=== PATIENT | male | born 1945 | race Caucasian/White ===

== ENCOUNTER 2018-03-30 13:47 | Emergency (ER) | payer MEDICARE, OTHER ==
[~2018-03-30] VITALS: Ht 162.6 cm; Wt 65.8 kg
[2018-03-30] MEDS ORDERED: DULO60 (14:19)
[2018-03-30] MEDS ORDERED: GABA300 PO (14:19)
[2018-03-30] MEDS ORDERED: MORP30 PO (14:20)
[2018-03-30] MEDS ORDERED: CLON1 PO (14:20)
[2018-03-30] MEDS ORDERED: QUET25 PO (14:20)
[2018-03-30] MEDS ORDERED: SIMV40 PO (14:21)
[2018-03-30] MEDS ORDERED: TAMS.4ER PO (14:21)
[2018-03-30] MEDS ORDERED: MIRT15 PO (14:21)
[2018-03-30] MEDS ORDERED: GLIP2.5ER PO (14:22)
[2018-03-30] MEDS ORDERED: LEVSOD50 PO (14:23)
[2018-03-30] MEDS ORDERED: NITR.4SL SL (14:24)
[2018-03-30] MEDS ORDERED: ASPI81CH PO (14:24)
[2018-03-30] MEDS ORDERED: TRAM50 PO (14:25)
[2018-03-30 14:58] LABS: Alanine Aminotransfer (ALT/SGP 14 U/L (12-78); Albumin, Blood 2.6 g/dL (3.4-5.0); Albumin/Globulin Ratio 0.6 (0.8-1.8); Alk Phos 105 U/L (50-136); Anion Gap 6 mmol/L (6-16); Aspartate Aminotrans (AST/SGOT 11 U/L (12-37); Bilirubin, Total 0.4 mg/dL (0.1-1.0); Blood Urea Nitrogen 7 mg/dL (8-24); Bun/Creatinine Ratio 9.7 (12.0-20.0); CO2, Blood 28 mmol/L (21-32); Calcium, Blood 8.4 mg/dL (8.5-10.1); Chloride, Blood 105 mmol/L (98-108); Creatinine, Blood 0.72 mg/dL (0.60-1.20); Globulin, Blood 4.5 g/dL (2.2-4.0); Glomerular Filtration Rate >60 (60-); Glucose, Blood 118 mg/dL (70-99); Potassium, Blood 3.9 mmol/L (3.5-5.5); Sodium, Blood 139 mmol/L (136-145); Total Protein, Blood 7.1 g/dL (6.4-8.2)
[2018-03-30 15:01] LABS: BASOPHILS ABSOLUTE AUTO 0.05 K/mm3 (0.00-0.23); BASOPHILS PERCENT AUTO 1 % (0-2); EOSINOPHILS ABSOLUTE AUTO 0.02 K/mm3 (0.00-0.68); EOSINOPHILS PERCENT AUTO 0 % (0-6); Hemoglobin 16.3 g/dL (13.5-17.5); IMMATURE GRAN ABSOLUTE AUTO 0.04 K/mm3 (0.00-0.10); IMMATURE GRAN PERCENT AUTO 0 % (0-1); LYMPHOCYTES ABSOLUTE AUTO 1.62 K/mm3 (0.84-5.20); LYMPHOCYTES PERCENT AUTO 17 % (21-46); MONOCYTES ABSOLUTE AUTO 0.62 K/mm3 (0.16-1.47); MONOCYTES PERCENT AUTO 7 % (4-13); Mean Corpuscular HGB 30.4 pg (26.0-34.0); Mean Corpuscular HGB Conc 32.6 g/dL (31.5-36.5); Mean Corpuscular Volume 93 fL (80-100); Mean Platelet Volume 9.3 fL (9.1-12.4); NEUTROPHILS ABSOLUTE AUTO 6.98 K/mm3 (1.96-9.15); NEUTROPHILS PERCENT AUTO 75 % (41-73); Platelet Count 305 K/mm3 (150-400); RDW Coefficient Variation 15.7 % (11.7-14.2); RDW Standard Deviation 53.4 fL (35.1-46.3); Red Blood Cell Count 5.36 M/mm3 (4.30-5.90); White Blood Cell Count 9.33 K/mm3 (4.00-11.30)
[2018-03-30 15:06] LABS: Source, Urine Clean Catch
[2018-03-30 15:14] LABS: Appearance, Urine Hazy (Clear); Bilirubin, Urine Neg (Neg); Blood, Urine Neg (Neg); Color, Urine Yellow (P-Yellow); Glucose Qualitative, Urine Neg (Neg); Ketones, Urine Neg (Neg); Leukocyte Esterase, Urine Neg (Neg); Nitrite, Urine Neg (Neg); Protein, Urine Neg (Neg); Urobilinogen, Urine NORM (Normal)
[2018-03-30 15:29] LABS: Amorphous Heavy (0-Heavy); Bacteria Rare /hpf; Red Blood Cells, Urine 0-2 /hpf (0-2); Squamous Epithelial Cells Rare /hpf (Few); White Blood Cells, Urine 0-2 /hpf (0-5)
== END 2018-03-30 17:16 | disposition home or self-care (01) ==
LOC: ER 13:47
PROVIDERS: Physician Assistant
DX: J45.901 Unspecified asthma with (acute) exacerbation (principal); K52.9 Noninfective gastroenteritis and colitis, unspecified; I10 Essential (primary) hypertension; I25.10 Atherosclerotic heart disease of native coronary artery without angina pectoris; E11.9 Type 2 diabetes mellitus without complications; E03.9 Hypothyroidism, unspecified; J44.9 Chronic obstructive pulmonary disease, unspecified; F17.210 Nicotine dependence, cigarettes, uncomplicated; Z88.5 Allergy status to narcotic agent; Z79.899 Other long term (current) drug therapy; Z79.84 Long term (current) use of oral hypoglycemic drugs; Z79.82 Long term (current) use of aspirin
CPT/HCPCS: 36415; 71046; 74176; 80053; 81001; 85025; 93005; 93010; 94644; 96361; 96374; 96375; 99284-25; J2405; J2930; J7030

== ENCOUNTER 2018-09-26 11:39 | Emergency (ER) | payer MEDICARE, OTHER ==
[~2018-09-26] VITALS: Ht 172.7 cm; Wt 86.2 kg
[~2018-09-26 11:39] MED LIST: ASPI81CH PO; CLON1 PO; DULO60; GABA300 PO; GLIP2.5ER PO; LEVSOD50 PO; MIRT15 PO; MORP30 PO; NITR.4SL SL; QUET25 PO; SIMV40 PO; TAMS.4ER PO; TRAM50 PO
[2018-09-26 12:25] LABS: BASOPHILS ABSOLUTE AUTO 0.06 K/mm3 (0.00-0.23); BASOPHILS PERCENT AUTO 1 % (0-2); EOSINOPHILS ABSOLUTE AUTO 0.04 K/mm3 (0.00-0.68); EOSINOPHILS PERCENT AUTO 1 % (0-6); Hemoglobin 18.8 g/dL (13.5-17.5); IMMATURE GRAN ABSOLUTE AUTO 0.03 K/mm3 (0.00-0.10); IMMATURE GRAN PERCENT AUTO 0 % (0-1); LYMPHOCYTES ABSOLUTE AUTO 1.77 K/mm3 (0.84-5.20); LYMPHOCYTES PERCENT AUTO 22 % (21-46); MONOCYTES ABSOLUTE AUTO 0.67 K/mm3 (0.16-1.47); MONOCYTES PERCENT AUTO 8 % (4-13); Mean Corpuscular HGB 30.1 pg (26.0-34.0); Mean Corpuscular HGB Conc 32.4 g/dL (31.5-36.5); Mean Corpuscular Volume 93 fL (80-100); Mean Platelet Volume 9.7 fL (9.1-12.4); NEUTROPHILS ABSOLUTE AUTO 5.65 K/mm3 (1.96-9.15); NEUTROPHILS PERCENT AUTO 69 % (41-73); Platelet Count 195 K/mm3 (150-400); RDW Coefficient Variation 15.1 % (11.7-14.2); RDW Standard Deviation 51.8 fL (35.1-46.3); Red Blood Cell Count 6.24 M/mm3 (4.30-5.90); White Blood Cell Count 8.22 K/mm3 (4.00-11.30)
[2018-09-26 12:26] LABS: Hematocrit 58.1 % (37.0-53.0)
[2018-09-26 12:44] LABS: Alanine Aminotransfer (ALT/SGP 38 U/L (12-78); Albumin, Blood 3.2 g/dL (3.4-5.0); Albumin/Globulin Ratio 0.7 (0.8-1.8); Alk Phos 116 U/L (50-136); Anion Gap 5 mmol/L (6-16); Aspartate Aminotrans (AST/SGOT 77 U/L (12-37); Bilirubin, Total 0.6 mg/dL (0.1-1.0); Blood Urea Nitrogen 14 mg/dL (8-24); Bun/Creatinine Ratio 22.3 (12.0-20.0); CO2, Blood 28 mmol/L (21-32); Calcium, Blood 9.2 mg/dL (8.5-10.1); Chloride, Blood 104 mmol/L (98-108); Creatinine, Blood 0.63 mg/dL (0.60-1.20); Globulin, Blood 4.9 g/dL (2.2-4.0); Glomerular Filtration Rate >60 (60-); Glucose, Blood 117 mg/dL (70-99); Potassium, Blood 5.9 mmol/L (3.5-5.5); Sodium, Blood 137 mmol/L (136-145); Total Protein, Blood 8.1 g/dL (6.4-8.2); Troponin I <0.015 ng/mL (0.000-0.040)
== END 2018-09-26 13:33 | disposition left against medical advice (07) ==
LOC: ER 11:39
PROVIDERS: Internal Medicine
DX: E87.5 Hyperkalemia (principal); I10 Essential (primary) hypertension; F41.9 Anxiety disorder, unspecified; E78.5 Hyperlipidemia, unspecified; E03.9 Hypothyroidism, unspecified; E11.9 Type 2 diabetes mellitus without complications; K21.9 Gastro-esophageal reflux disease without esophagitis; F25.9 Schizoaffective disorder, unspecified; Z88.5 Allergy status to narcotic agent; Z79.899 Other long term (current) drug therapy; Z79.82 Long term (current) use of aspirin; F17.200 Nicotine dependence, unspecified, uncomplicated
CPT/HCPCS: 36415; 71046; 80053; 83880; 84484; 85025; 93005; 93010; 99285-25

== ENCOUNTER 2019-01-14 19:17 | Emergency (ER) | payer MEDICARE, OTHER ==
[~2019-01-14] VITALS: Ht 162.6 cm; Wt 90.7 kg
[~2019-01-14 19:17] MED LIST changes: -ASPI81CH PO; +Aspirin EC81 MG PO; +CLON.5 PO; -CLON1 PO; -DULO60; +DULO60 PO; -GLIP2.5ER PO; +GLIP5ER PO; +LEVSOD25 PO; -LEVSOD50 PO
[2019-01-14 19:46] LABS: BASOPHILS ABSOLUTE AUTO 0.08 K/mm3 (0.00-0.23); BASOPHILS PERCENT AUTO 1 % (0-2); EOSINOPHILS ABSOLUTE AUTO 0.53 K/mm3 (0.00-0.68); EOSINOPHILS PERCENT AUTO 5 % (0-6); Hematocrit 44.7 % (37.0-53.0); IMMATURE GRAN ABSOLUTE AUTO 0.07 K/mm3 (0.00-0.10); IMMATURE GRAN PERCENT AUTO 1 % (0-1); LYMPHOCYTES ABSOLUTE AUTO 2.67 K/mm3 (0.84-5.20); LYMPHOCYTES PERCENT AUTO 26 % (21-46); MONOCYTES ABSOLUTE AUTO 0.97 K/mm3 (0.16-1.47); MONOCYTES PERCENT AUTO 9 % (4-13); Mean Corpuscular HGB 29.7 pg (26.0-34.0); Mean Corpuscular HGB Conc 31.3 g/dL (31.5-36.5); Mean Corpuscular Volume 95 fL (80-100); Mean Platelet Volume 9.9 fL (9.1-12.4); NEUTROPHILS ABSOLUTE AUTO 6.01 K/mm3 (1.96-9.15); NEUTROPHILS PERCENT AUTO 58 % (41-73); Platelet Count 275 K/mm3 (150-400); RDW Coefficient Variation 14.4 % (11.7-14.2); RDW Standard Deviation 49.7 fL (35.1-46.3); Red Blood Cell Count 4.71 M/mm3 (4.30-5.90); White Blood Cell Count 10.33 K/mm3 (4.00-11.30)
[2019-01-14 19:57] LABS: Alanine Aminotransfer (ALT/SGP 22 U/L (12-78); Albumin, Blood 2.9 g/dL (3.4-5.0); Albumin/Globulin Ratio 0.7 (0.8-1.8); Alk Phos 79 U/L (50-136); Anion Gap 4 mmol/L (6-16); Aspartate Aminotrans (AST/SGOT 19 U/L (12-37); Bilirubin, Total 0.4 mg/dL (0.1-1.0); Blood Urea Nitrogen 17 mg/dL (8-24); Bun/Creatinine Ratio 21.5 (12.0-20.0); CO2, Blood 31 mmol/L (21-32); Calcium, Blood 9.1 mg/dL (8.5-10.1); Chloride, Blood 102 mmol/L (98-108); Creatinine, Blood 0.79 mg/dL (0.60-1.20); Globulin, Blood 4.2 g/dL (2.2-4.0); Glomerular Filtration Rate >60 (60-); Glucose, Blood 193 mg/dL (70-99); Potassium, Blood 4.2 mmol/L (3.5-5.5); Sodium, Blood 137 mmol/L (136-145); Total Protein, Blood 7.1 g/dL (6.4-8.2)
[2019-01-14] MEDS ORDERED: HYDPAM25 PO (20:08)
[2019-01-14] MEDS ORDERED: LEVO750 PO (20:09)
[2019-01-14 20:10] LABS: International Normalized Ratio 1.03; Prothrombin Time Results 10.9 Sec (9.7-11.5)
[2019-01-14] MEDS ORDERED: Celexa10 MG PO (20:10)
[2019-01-14] MEDS ORDERED: ALBU90OI INH ×2 (20:12→21:18)
[2019-01-14 20:26] LABS: PCO2 Arterial 55 mmHg (35-45); pH Blood Arterial 7.37 (7.35-7.45)
[2019-01-14 20:27] LABS: PO2 Arterial 62.5 mmHg (80-100)
[2019-01-14] MEDS ORDERED: NICO2 (20:51)
[2019-01-14] MEDS ORDERED: Prednisone20 MG PO (21:18)
== END 2019-01-14 21:43 | disposition home or self-care (01) ==
LOC: ER 19:17
PROVIDERS: Emergency Medicine
DX: J96.21 Acute and chronic respiratory failure with hypoxia (principal); Z86.73 Personal history of transient ischemic attack (TIA), and cerebral infarction without residual deficits; J44.1 Chronic obstructive pulmonary disease with (acute) exacerbation; Z88.5 Allergy status to narcotic agent; Z88.8 Allergy status to other drugs, medicaments and biological substances; Z79.899 Other long term (current) drug therapy; Z79.82 Long term (current) use of aspirin; I10 Essential (primary) hypertension; F41.9 Anxiety disorder, unspecified; E78.5 Hyperlipidemia, unspecified; E03.9 Hypothyroidism, unspecified; E11.9 Type 2 diabetes mellitus without complications; K21.9 Gastro-esophageal reflux disease without esophagitis; F17.210 Nicotine dependence, cigarettes, uncomplicated
CPT/HCPCS: 36600; 70450; 71045; 80053; 82803; 85025; 85610; 85730; 93005; 93010; 94640; 96374; 99285-25; J2930

== ENCOUNTER 2019-07-05 10:11 | Emergency (ER) | payer MEDICARE, OTHER ==
[~2019-07-05] VITALS: Ht 162.6 cm; Wt 81.7 kg
[~2019-07-05 10:11] MED LIST changes: +ALBU90OI INH; +Celexa10 MG PO; +HYDPAM25 PO; +LEVO750 PO; +NICO2; +Prednisone20 MG PO
[2019-07-05] MEDS ORDERED: ACET500 PO (10:29)
[2019-07-05] MEDS ORDERED: BISA5EC PO (10:30)
[2019-07-05] MEDS ORDERED: MORP30ER PO (10:31)
[2019-07-05] MEDS ORDERED: MORP15ER PO (10:31)
[2019-07-05 10:32] LABS: BASOPHILS ABSOLUTE AUTO 0.06 K/mm3 (0.00-0.23); BASOPHILS PERCENT AUTO 1 % (0-2); EOSINOPHILS ABSOLUTE AUTO 0.42 K/mm3 (0.00-0.68); EOSINOPHILS PERCENT AUTO 4 % (0-6); Hematocrit 46.7 % (37.0-53.0); Hemoglobin 14.7 g/dL (13.5-17.5); IMMATURE GRAN ABSOLUTE AUTO 0.07 K/mm3 (0.00-0.10); IMMATURE GRAN PERCENT AUTO 1 % (0-1); LYMPHOCYTES PERCENT AUTO 26 % (21-46); MONOCYTES ABSOLUTE AUTO 0.74 K/mm3 (0.16-1.47); MONOCYTES PERCENT AUTO 8 % (4-13); Mean Corpuscular HGB 29.1 pg (26.0-34.0); Mean Corpuscular HGB Conc 31.5 g/dL (31.5-36.5); Mean Corpuscular Volume 93 fL (80-100); Mean Platelet Volume 9.6 fL (9.1-12.4); NEUTROPHILS ABSOLUTE AUTO 5.71 K/mm3 (1.96-9.15); NEUTROPHILS PERCENT AUTO 60 % (41-73); Platelet Count 222 K/mm3 (150-400); RDW Coefficient Variation 14.6 % (11.7-14.2); RDW Standard Deviation 49.8 fL (35.1-46.3); Red Blood Cell Count 5.05 M/mm3 (4.30-5.90)
[2019-07-05] MEDS ORDERED: LEVSOD100 PO (10:32)
[2019-07-05 10:46] LABS: Alanine Aminotransfer (ALT/SGP 20 U/L (12-78); Albumin, Blood 2.9 g/dL (3.4-5.0); Albumin/Globulin Ratio 0.7 (0.8-1.8); Alk Phos 105 U/L (50-136); Anion Gap 4 mmol/L (6-16); Aspartate Aminotrans (AST/SGOT 17 U/L (12-37); Bilirubin, Total 0.2 mg/dL (0.1-1.0); Blood Urea Nitrogen 18 mg/dL (8-24); CO2, Blood 29 mmol/L (21-32); Calcium, Blood 9.1 mg/dL (8.5-10.1); Chloride, Blood 105 mmol/L (98-108); Creatinine, Blood 0.72 mg/dL (0.60-1.20); Globulin, Blood 4.2 g/dL (2.2-4.0); Glomerular Filtration Rate >60 (60-); Glucose, Blood 183 mg/dL (70-99); Potassium, Blood 4.3 mmol/L (3.5-5.5); Sodium, Blood 138 mmol/L (136-145); Total Protein, Blood 7.1 g/dL (6.4-8.2)
[2019-07-05] MEDS ORDERED: HYDHCL25 PO (10:48)
[2019-07-05] MEDS ORDERED: BACL10 PO (10:49)
[2019-07-05 13:11] LABS: Source, Urine Clean Catch
[2019-07-05 13:14] LABS: Appearance, Urine Clear (Clear); Bilirubin, Urine Neg (Neg); Blood, Urine Neg (Neg); Color, Urine Yellow (P-Yellow); Glucose Qualitative, Urine Neg (Neg); Ketones, Urine Neg (Neg); Leukocyte Esterase, Urine Neg (Neg); Nitrite, Urine Neg (Neg); Protein, Urine Neg (Neg); Specific Gravity, Urine 1.025 (1.003-1.022); Urobilinogen, Urine NORM (Normal)
== END 2019-07-05 14:16 | disposition home or self-care (01) ==
LOC: ER 10:11
PROVIDERS: Emergency Medicine
DX: R55 Syncope and collapse (principal); M25.552 Pain in left hip; I10 Essential (primary) hypertension; E11.9 Type 2 diabetes mellitus without complications; I25.10 Atherosclerotic heart disease of native coronary artery without angina pectoris; E78.5 Hyperlipidemia, unspecified; F41.9 Anxiety disorder, unspecified; J44.9 Chronic obstructive pulmonary disease, unspecified; E03.9 Hypothyroidism, unspecified; K21.9 Gastro-esophageal reflux disease without esophagitis; F17.210 Nicotine dependence, cigarettes, uncomplicated; Z88.5 Allergy status to narcotic agent; Z88.8 Allergy status to other drugs, medicaments and biological substances; Z79.899 Other long term (current) drug therapy; Z79.84 Long term (current) use of oral hypoglycemic drugs; Z79.51 Long term (current) use of inhaled steroids; W18.30XA Fall on same level, unspecified, initial encounter
CPT/HCPCS: 36415; 71045; 73502; 73610; 80053; 81003; 85025; 93005; 93010; 99284-25

== ENCOUNTER 2019-12-17 12:47 | Emergency (ER) | payer MEDICARE, OTHER ==
[~2019-12-17] VITALS: Ht 165.1 cm; Wt 88.5 kg
[~2019-12-17 12:47] MED LIST changes: +ACET500 PO; +BACL10 PO; +BISA5EC PO; +HYDHCL25 PO; +LEVSOD100 PO; +MORP15ER PO; +MORP30ER PO
[2019-12-17 13:24] LABS: BASOPHILS ABSOLUTE AUTO 0.09 K/mm3 (0.00-0.23); BASOPHILS PERCENT AUTO 1 % (0-2); EOSINOPHILS ABSOLUTE AUTO 0.44 K/mm3 (0.00-0.68); EOSINOPHILS PERCENT AUTO 4 % (0-6); Hematocrit 48.2 % (37.0-53.0); Hemoglobin 14.9 g/dL (13.5-17.5); IMMATURE GRAN ABSOLUTE AUTO 0.09 K/mm3 (0.00-0.10); IMMATURE GRAN PERCENT AUTO 1 % (0-1); LYMPHOCYTES ABSOLUTE AUTO 3.87 K/mm3 (0.84-5.20); LYMPHOCYTES PERCENT AUTO 35 % (21-46); MONOCYTES ABSOLUTE AUTO 1.06 K/mm3 (0.16-1.47); MONOCYTES PERCENT AUTO 10 % (4-13); Mean Corpuscular HGB 28.5 pg (26.0-34.0); Mean Corpuscular HGB Conc 30.9 g/dL (31.5-36.5); Mean Corpuscular Volume 92 fL (80-100); Mean Platelet Volume 9.9 fL (9.1-12.4); NEUTROPHILS ABSOLUTE AUTO 5.55 K/mm3 (1.96-9.15); NEUTROPHILS PERCENT AUTO 50 % (41-73); Platelet Count 241 K/mm3 (150-400); RDW Coefficient Variation 14.6 % (11.7-14.2); Red Blood Cell Count 5.22 M/mm3 (4.30-5.90)
[2019-12-17 13:34] LABS: Alanine Aminotransfer (ALT/SGP 17 U/L (12-78); Albumin/Globulin Ratio 0.7 (0.8-1.8); Alk Phos 107 U/L (50-136); Anion Gap 3 mmol/L (6-16); Aspartate Aminotrans (AST/SGOT 20 U/L (12-37); Bilirubin, Total 0.2 mg/dL (0.1-1.0); Blood Urea Nitrogen 17 mg/dL (8-24); Bun/Creatinine Ratio 17.3 (12.0-20.0); CO2, Blood 31 mmol/L (21-32); Calcium, Blood 8.8 mg/dL (8.5-10.1); Chloride, Blood 105 mmol/L (98-108); Creatinine, Blood 0.99 mg/dL (0.60-1.20); Globulin, Blood 4.5 g/dL (2.2-4.0); Glomerular Filtration Rate >60 (60-); Glucose, Blood 103 mg/dL (70-99); Potassium, Blood 4.1 mmol/L (3.5-5.5); Sodium, Blood 139 mmol/L (136-145); Total Protein, Blood 7.5 g/dL (6.4-8.2)
[2019-12-17] MEDS ORDERED: PRED20 PO (13:37)
[2019-12-17] MEDS ORDERED: AZIT250 PO (13:37)
== END 2019-12-17 15:05 | disposition home or self-care (01) ==
LOC: ER 12:47
PROVIDERS: Emergency Medicine
DX: J44.1 Chronic obstructive pulmonary disease with (acute) exacerbation (principal); I10 Essential (primary) hypertension; F41.9 Anxiety disorder, unspecified; E78.5 Hyperlipidemia, unspecified; E03.9 Hypothyroidism, unspecified; E11.9 Type 2 diabetes mellitus without complications; K21.9 Gastro-esophageal reflux disease without esophagitis; I25.10 Atherosclerotic heart disease of native coronary artery without angina pectoris; Z86.73 Personal history of transient ischemic attack (TIA), and cerebral infarction without residual deficits; F17.210 Nicotine dependence, cigarettes, uncomplicated; Z88.5 Allergy status to narcotic agent; Z88.8 Allergy status to other drugs, medicaments and biological substances; Z79.899 Other long term (current) drug therapy; Z79.82 Long term (current) use of aspirin
CPT/HCPCS: 71045; 80053; 85025; 93005; 93010; 96374; 99285-25; J2930

== ENCOUNTER 2020-06-16 11:14 | Emergency (ER) | payer MEDICARE, OTHER ==
[~2020-06-16] VITALS: Ht 165.1 cm; Wt 83.9 kg
[~2020-06-16 11:14] MED LIST changes: +AZIT250 PO; +PRED20 PO
[2020-06-16 11:36] LABS: Source, Urine Clean Catch
[2020-06-16 12:34] LABS: Appearance, Urine Clear (Clear); Bilirubin, Urine Neg (Neg); Blood, Urine 5+ (Neg); Color, Urine Red (P-Yellow); Glucose Qualitative, Urine 4+ (Neg); Ketones, Urine Neg (Neg); Leukocyte Esterase, Urine 1+ (Neg); Nitrite, Urine Neg (Neg); Protein, Urine 3+ (Neg); Specific Gravity, Urine 1.005 (1.003-1.022); Urobilinogen, Urine NORM (Normal); pH, Urine 6.5 (5.0-8.0)
[2020-06-16 12:50] LABS: Bacteria Mod /hpf; Red Blood Cells, Urine TNTC /hpf (0-2); Squamous Epithelial Cells Rare /hpf (Few)
[2020-06-16 12:51] LABS: Mucus Light (0-Heavy)
[2020-06-16] MEDS ORDERED: CEFP200 PO (12:53)
== END 2020-06-16 13:25 | disposition home or self-care (01) ==
LOC: ER 11:14
PROVIDERS: Physician Assistant
DX: N39.0 Urinary tract infection, site not specified (principal); R31.9 Hematuria, unspecified; J44.9 Chronic obstructive pulmonary disease, unspecified; I10 Essential (primary) hypertension; E78.5 Hyperlipidemia, unspecified; E03.9 Hypothyroidism, unspecified; E11.9 Type 2 diabetes mellitus without complications; K21.9 Gastro-esophageal reflux disease without esophagitis; F25.9 Schizoaffective disorder, unspecified; Z86.73 Personal history of transient ischemic attack (TIA), and cerebral infarction without residual deficits; I25.10 Atherosclerotic heart disease of native coronary artery without angina pectoris; F17.210 Nicotine dependence, cigarettes, uncomplicated
CPT/HCPCS: 81001; 87086; 99283; A9270-GY

== ENCOUNTER → 2020-08-07 | Outpatient (CLI) | payer MEDICARE, OTHER ==
[~2020-08-07] MED LIST changes: +CEFP200 PO; +DOCU100 PO; +METO25ER PO; +Serevent Disku50 MCG INH; +Zocor20 MG PO
== END | disposition home or self-care (01) ==
LOC: LAB SHORT 15:24 → LAB 15:24
DX: L03.032 Cellulitis of left toe (principal)
CPT/HCPCS: 87070; 87075; 87205

== ENCOUNTER 2020-11-25 11:34 | Emergency (ER) | payer OTHER ==
[~2020-11-25] VITALS: Ht 167.6 cm; Wt 81.7 kg
[~2020-11-25 11:34] MED LIST changes: -DOCU100 PO; -METO25ER PO; -Serevent Disku50 MCG INH; -Zocor20 MG PO
[2020-11-25 12:33] LABS: BASOPHILS ABSOLUTE AUTO 0.11 K/mm3 (0.00-0.23); BASOPHILS PERCENT AUTO 1 % (0-2); EOSINOPHILS ABSOLUTE AUTO 0.28 K/mm3 (0.00-0.68); EOSINOPHILS PERCENT AUTO 2 % (0-6); Hematocrit 48.7 % (37.0-53.0); Hemoglobin 16.1 g/dL (13.5-17.5); IMMATURE GRAN ABSOLUTE AUTO 0.07 K/mm3 (0.00-0.10); IMMATURE GRAN PERCENT AUTO 1 % (0-1); LYMPHOCYTES ABSOLUTE AUTO 3.08 K/mm3 (0.84-5.20); LYMPHOCYTES PERCENT AUTO 25 % (21-46); MONOCYTES ABSOLUTE AUTO 1.02 K/mm3 (0.16-1.47); MONOCYTES PERCENT AUTO 8 % (4-13); Mean Corpuscular HGB 28.2 pg (26.0-34.0); Mean Corpuscular HGB Conc 33.1 g/dL (31.5-36.5); Mean Corpuscular Volume 85 fL (80-100); Mean Platelet Volume 9.7 fL (9.1-12.4); NEUTROPHILS ABSOLUTE AUTO 7.86 K/mm3 (1.96-9.15); NEUTROPHILS PERCENT AUTO 63 % (41-73); Platelet Count 290 K/mm3 (150-400); RDW Coefficient Variation 14.9 % (11.7-14.2); RDW Standard Deviation 46.6 fL (35.1-46.3); White Blood Cell Count 12.42 K/mm3 (4.00-11.30)
[2020-11-25 12:49] LABS: Alanine Aminotransfer (ALT/SGP 16 U/L (12-78); Albumin, Blood 3.3 g/dL (3.4-5.0); Albumin/Globulin Ratio 0.7 (0.8-1.8); Alk Phos 103 U/L (50-136); Anion Gap 4 mmol/L (6-16); Aspartate Aminotrans (AST/SGOT 13 U/L (12-37); Bilirubin, Total 0.3 mg/dL (0.1-1.0); Blood Urea Nitrogen 10 mg/dL (8-24); Bun/Creatinine Ratio 12.5 (12.0-20.0); CO2, Blood 31 mmol/L (21-32); Calcium, Blood 9.5 mg/dL (8.5-10.1); Chloride, Blood 98 mmol/L (98-108); Globulin, Blood 4.6 g/dL (2.2-4.0); Glomerular Filtration Rate >60 (60-); Glucose, Blood 200 mg/dL (70-99); Sodium, Blood 133 mmol/L (136-145); Total Protein, Blood 7.9 g/dL (6.4-8.2)
== END 2020-11-25 14:13 | disposition home or self-care (01) ==
LOC: ER 11:34
PROVIDERS: Emergency Medicine
DX: R40.4 Transient alteration of awareness (principal); R25.1 Tremor, unspecified; K21.9 Gastro-esophageal reflux disease without esophagitis; Z88.5 Allergy status to narcotic agent; Z79.82 Long term (current) use of aspirin; Z79.899 Other long term (current) drug therapy
CPT/HCPCS: 36415; 80053; 85025; 99283

== ENCOUNTER 2021-01-23 10:02 | Inpatient (IN) | payer OTHER ==
[~2021-01-23] VITALS: Ht 180.3 cm; Wt 81.2 kg
[2021-01-23 10:30] LABS: Chloride (POC) 101 mmol/L (98-108); Creatinine (POC) 0.8 mg/dL (0.8-1.3); Glucose (ISTAT POC) 200 mg/dL (70-99); Potassium (POC) >9.0 mmol/L (3.5-5.5); Sodium (POC) 124 mmol/L (135-148); Total CO2 (POC) 30 mmol/L (21-32)
[2021-01-23 10:32] LABS: BASOPHILS ABSOLUTE AUTO 0.09 K/mm3 (0.00-0.23); BASOPHILS PERCENT AUTO 1 % (0-2); EOSINOPHILS ABSOLUTE AUTO 0.44 K/mm3 (0.00-0.68); EOSINOPHILS PERCENT AUTO 4 % (0-6); Hematocrit 46.4 % (37.0-53.0); Hemoglobin 15.3 g/dL (13.5-17.5); IMMATURE GRAN PERCENT AUTO 1 % (0-1); LYMPHOCYTES ABSOLUTE AUTO 2.75 K/mm3 (0.84-5.20); LYMPHOCYTES PERCENT AUTO 24 % (21-46); MONOCYTES ABSOLUTE AUTO 0.94 K/mm3 (0.16-1.47); MONOCYTES PERCENT AUTO 8 % (4-13); Mean Corpuscular HGB 28.4 pg (26.0-34.0); Mean Corpuscular Volume 86 fL (80-100); Mean Platelet Volume 9.8 fL (9.1-12.4); NEUTROPHILS ABSOLUTE AUTO 7.34 K/mm3 (1.96-9.15); NEUTROPHILS PERCENT AUTO 63 % (41-73); Platelet Count 269 K/mm3 (150-400); RDW Coefficient Variation 14.5 % (11.7-14.2); RDW Standard Deviation 45.7 fL (35.1-46.3); Red Blood Cell Count 5.39 M/mm3 (4.30-5.90); White Blood Cell Count 11.66 K/mm3 (4.00-11.30)
[2021-01-23 10:40] LABS: Alanine Aminotransfer (ALT/SGP 14 U/L (12-78); Albumin, Blood 2.9 g/dL (3.4-5.0); Albumin/Globulin Ratio 0.6 (0.8-1.8); Alk Phos 98 U/L (50-136); Anion Gap 3 mmol/L (6-16); Aspartate Aminotrans (AST/SGOT 11 U/L (12-37); Bilirubin, Total 0.3 mg/dL (0.1-1.0); Blood Urea Nitrogen 13 mg/dL (8-24); Bun/Creatinine Ratio 17.9 (12.0-20.0); CO2, Blood 30 mmol/L (21-32); Calcium, Blood 9.5 mg/dL (8.5-10.1); Chloride, Blood 102 mmol/L (98-108); Creatinine, Blood 0.73 mg/dL (0.60-1.20); Globulin, Blood 4.7 g/dL (2.2-4.0); Glomerular Filtration Rate >60 (60-); Glucose, Blood 201 mg/dL (70-99); Potassium, Blood 4.2 mmol/L (3.5-5.5); Sodium, Blood 135 mmol/L (136-145); Total Protein, Blood 7.6 g/dL (6.4-8.2)
[2021-01-23 10:53] LABS: International Normalized Ratio 1.01; Prothrombin Time Results 10.9 Sec (9.7-11.5)
[2021-01-23 12:23] LABS: SARS-Cov-2 (COVID-19) PCR, MMC NEGATIVE (NEGATIVE)
[2021-01-23] MEDS ORDERED: METO25ER PO (15:12)
[2021-01-23] MEDS ORDERED: Serevent Disku50 MCG INH (15:16)
[2021-01-23] MEDS ORDERED: Zocor20 MG PO (15:19)
[2021-01-23] MEDS ORDERED: DOCU100 PO (15:28)
--- NOTE | 2021-01-23 18:44 | NUR ---
SHIFT SUMMARY: ASSUMED CARE OF PT UPON HIS ARRIVAL FROM ED. A&O X 2-3, STUBBORN AND THREATENS TO LEAVE AMA EVERY TIME HE DOESN'T GET HIS WAY. NEURO EXAN WNL WITH THE EXCEPTION OF FLACCID R ARM AND WEAK RLE. IS ABLE TO AMBULATE WITH SBA, USES MOTORIZED W/C AT HOME. LUNG SOUNDS COARSE THROUGHOUT, USES 3 L/ML O2 AT BASELINE. HAS CHRONIC PAIN, MEDICATED PER EMAR. AWAITING PT/OT EVALS. INSISTS HE IS NOT DIABETIC.
--- NOTE | 2021-01-23 19:05 | NUR ---
ASSUMED CARE RECEIVED REPORT FROM KERRY BRITT. PT ASLEEP, IN NAD. NO ACUTE NEEDS ASSESSED. CALL LIGHT, POSSESSIONS IN REACH, BED IN LOW AND LOCKED POSITION WITH ALARMS ON.
--- NOTE | 2021-01-24 05:42 | NUR ---
RN ORTHOPAEDIC SUMMARY PT RESTING, IN NAD. SLEPT T/O NIGHT. PT REFUSED HS CBG, STATED HE WOULD LEAVE AMA IF STAFF TRIED TO OBTAIN IT. HX OF REFUSING OTHER CARES WELL; STUBBORN AND NON-DIRECTABLE. APPEARS TO BE IN BETTER SPIRITS THIS AM. NO ACUTE CHANGES IN NEURO STATUS, RUE REMAINS FLACCID, RLE SLIGHTLY WEAKER THAN LLE. PT ABLE TO AMBULATE TO BATHROOM WITH FWW AND ASSIST OF 1. VS REVIEWED,WNL. NO ACUTE NEEDS ASSESSED AT THIS TIME. CALL LIGHT, POSSESSIONS IN REACH, BED IN LOW AND LOCKED POSITION WITH ALARMS ON. WILL REPORT OFF TO ONCOMING RN.
--- NOTE | 2021-01-24 10:28 | NUR ---
PT LEFT AMA JUST BEFORE DC COULD TAKE PLACE. PT REFUSED HIS CBG'S AND MORNING MEDICATION ADMIN ALONG WITH ORDERED ECHO. PT WAS ALERT AND ORIENTED X4 THIS MORNING, HOWEVEVER ANGRY AND NON COOPERATIVE. PT STATES "IM LEAVING, MY SON IS IN THE PARKING LOT." PT WAS COUNSELED ON RISKS AND BENEFITS OF LEAVING AMA AND ENCOURAGED TO STAY HIS DC COULD BE COMPLETED WITHIN 300 MIN. PT LEFT AND CHARGE NOTIFIED. AMA PAPERWORK COMPLETED.
== END 2021-01-24 10:08 | disposition left against medical advice (07) | DRG 69 ==
LOC: ER 10:02 → MEDS 12:32
PROVIDERS: Emergency Medicine; ADMIT Internal Medicine
DX: G45.9 Transient cerebral ischemic attack, unspecified (principal); Z20.822 Contact with and (suspected) exposure to COVID-19; J44.9 Chronic obstructive pulmonary disease, unspecified; E11.9 Type 2 diabetes mellitus without complications; F25.9 Schizoaffective disorder, unspecified; G89.29 Other chronic pain; K59.09 Other constipation; Z86.73 Personal history of transient ischemic attack (TIA), and cerebral infarction without residual deficits; R47.81 Slurred speech; E78.5 Hyperlipidemia, unspecified; F41.9 Anxiety disorder, unspecified; E03.9 Hypothyroidism, unspecified; M54.40 Lumbago with sciatica, unspecified side; Z88.5 Allergy status to narcotic agent; Z88.8 Allergy status to other drugs, medicaments and biological substances; Z79.899 Other long term (current) drug therapy; Z79.82 Long term (current) use of aspirin; K21.9 Gastro-esophageal reflux disease without esophagitis; I25.10 Atherosclerotic heart disease of native coronary artery without angina pectoris; F17.210 Nicotine dependence, cigarettes, uncomplicated
CPT/HCPCS: 70450; 70496; 70498; 70551; 80047; 80053; 82947; 84484; 85014; 85025; 85610; 85730; 93005; 93010; 93308; 93321; 94760; A9270; J2270; Q9967; U0004

== ENCOUNTER → 2021-06-29 | Outpatient (CLI) | payer OTHER ==
[~2021-06-29] MED LIST changes: +DOCU100 PO; +METO25ER PO; +Serevent Disku50 MCG INH; +Zocor20 MG PO
== END ==
LOC: LAB SHORT 18:46
DX: D48.5 Neoplasm of uncertain behavior of skin (principal); L02.214 Cutaneous abscess of groin; L29.8 Other pruritus; L82.1 Other seborrheic keratosis
CPT/HCPCS: 87070; 87106; 87205

== ENCOUNTER → 2021-06-29 | Outpatient (CLI) | payer OTHER | LOC: LAB SHORT 11:01 → PLD 11:01 | DX: D48.5 Neoplasm of uncertain behavior of skin (principal) | CPT/HCPCS: 88342 ==

== ENCOUNTER 2022-07-18 20:01 | Observation (INO) | payer OTHER ==
[~2022-07-18] VITALS: Ht 167.6 cm; Wt 60.1 kg
[2022-07-18 20:25] LABS: BASOPHILS ABSOLUTE AUTO 0.09 K/mm3 (0.00-0.23); BASOPHILS PERCENT AUTO 1 % (0-2); EOSINOPHILS ABSOLUTE AUTO 0.58 K/mm3 (0.00-0.68); EOSINOPHILS PERCENT AUTO 6 % (0-6); Hematocrit 39.2 % (37.0-53.0); Hemoglobin 13.1 g/dL (13.5-17.5); IMMATURE GRAN ABSOLUTE AUTO 0.05 K/mm3 (0.00-0.10); IMMATURE GRAN PERCENT AUTO 1 % (0-1); LYMPHOCYTES ABSOLUTE AUTO 3.23 K/mm3 (0.84-5.20); LYMPHOCYTES PERCENT AUTO 32 % (21-46); MONOCYTES ABSOLUTE AUTO 0.91 K/mm3 (0.16-1.47); MONOCYTES PERCENT AUTO 9 % (4-13); Mean Corpuscular HGB 29.2 pg (26.0-34.0); Mean Corpuscular HGB Conc 33.4 g/dL (31.5-36.5); Mean Corpuscular Volume 88 fL (80-100); Mean Platelet Volume 8.8 fL (9.1-12.4); NEUTROPHILS ABSOLUTE AUTO 5.14 K/mm3 (1.96-9.15); NEUTROPHILS PERCENT AUTO 51 % (41-73); Platelet Count 236 K/mm3 (150-400); RDW Coefficient Variation 16.7 % (11.7-14.2); RDW Standard Deviation 53.3 fL (35.1-46.3); Red Blood Cell Count 4.48 M/mm3 (4.30-5.90)
[2022-07-18 20:43] LABS: Albumin, Blood 2.6 g/dL (3.4-5.0); Albumin/Globulin Ratio 0.7 (0.8-1.8); Bilirubin, Total 0.2 mg/dL (0.1-1.0); Bun/Creatinine Ratio 27.7 (12.0-20.0); Calcium, Blood 8.9 mg/dL (8.5-10.1); Creatinine, Blood 0.72 mg/dL (0.60-1.20); Globulin, Blood 3.7 g/dL (2.2-4.0); Magnesium, Blood 2.2 mg/dL (1.6-2.4); Potassium, Blood 4.1 mmol/L (3.5-5.5); Total Protein, Blood 6.3 g/dL (6.4-8.2)
[2022-07-18 21:07] LABS: International Normalized Ratio 1.06; Prothrombin Time Results 11.1 Sec (9.7-11.5)
[2022-07-18 21:18] LABS: Influenza A, PCR NEGATIVE (NEGATIVE); Influenza B, PCR NEGATIVE (NEGATIVE); Resp Syncytial Virus, PCR NEGATIVE (NEGATIVE); SARS-Cov-2 (COVID-19) PCR, MMC NEGATIVE (NEGATIVE)
[2022-07-18 21:48] LABS: Base Excess Venous 4.4 mmol/L; Bicarbonate Venous 27.5 mmol/L (24.0-30.0); PCO2 Venous 50.2 mmHg (38-42); pH Blood Venous 7.38 (7.34-7.37)
[2022-07-18 22:17] LABS: Source, Urine Foley catheter
[2022-07-18 22:21] LABS: Bilirubin, Urine Neg (Neg); Blood, Urine 1+ (Neg); Glucose Qualitative, Urine Neg (Neg); Ketones, Urine Neg (Neg); Leukocyte Esterase, Urine Neg (Neg); Nitrite, Urine Neg (Neg); Protein, Urine Neg (Neg); Urobilinogen, Urine NORM (Normal)
[2022-07-18 22:39] LABS: Appearance, Urine Clear (Clear); Color, Urine Pale Yellow (P-Yellow)
[2022-07-18 22:40] LABS: Bacteria Rare /hpf; Red Blood Cells, Urine 0-2 /hpf (0-2); Squamous Epithelial Cells Rare /hpf (Few); White Blood Cells, Urine 0-2 /hpf (0-5)
[2022-07-19 00:03] LABS: Free Thyroxine 0.65 ng/dL (0.70-1.60)
[2022-07-19 00:04] LABS: Thyroid Stimulating Hormone 10.2 uIU/mL (0.360-4.800)
--- NOTE | 2022-07-19 00:36 | NUR ---
JAY CHATTERJEE UPDATED, PHONE # ([phone])
[2022-07-19] MEDS ORDERED: CLIN1TS (01:07)
[2022-07-19] MEDS ORDERED: CLOP75 PO (01:07)
[2022-07-19] MEDS ORDERED: ECONAZOLE NITRA30 GM TP (01:09)
[2022-07-19] MEDS ORDERED: FLUT.05NI (01:10)
[2022-07-19] MEDS ORDERED: HYDCOR2.5C PR (01:13)
[2022-07-19] MEDS ORDERED: KETO15TC TOP (01:15)
[2022-07-19] MEDS ORDERED: LATA.005SO BOTHEYES (01:16)
[2022-07-19] MEDS ORDERED: Robaxin750 MG PO (01:20)
[2022-07-19] MEDS ORDERED: MONT10T (01:21)
[2022-07-19] MEDS ORDERED: SENNA LAXATIVE8.6 MG PO (01:23)
[2022-07-19] MEDS ORDERED: Serevent Disku50 MCG IH (01:24)
[2022-07-19] MEDS ORDERED: ALBU90OI INH (01:30)
[2022-07-19] MEDS ORDERED: BISA10S (01:32)
[2022-07-19] MEDS ORDERED: DULCOLAX400 MG/5 M PO (01:36)
[2022-07-19] MEDS ORDERED: IPRAT-ALBUT 0.5-3 ML NEB (01:36)
[2022-07-19] MEDS ORDERED: NARCAN4 M1 (01:37)
[2022-07-19] MEDS ORDERED: NITR.4SL SL (01:38)
[2022-07-19] MEDS ORDERED: OXYC10TA19 PO (01:39)
[2022-07-19 01:44] LABS: U Amphetamine Screen Not Detected; U Barbituate Screen Not Detected; U Benzodiazapine Screen Not Detected; U Buprenorphine Screen Not Detected; U Cannabinoids Screen Not Detected; U Cocaine Screen Not Detected; U Methadone Screen Not Detected; U Methamphetamine Screen Not Detected; U Opiates Screen DETECTED; U Oxycodone Screen Not Detected; U Phencyclidine Screen Not Detected; U Propoxyphene Screen Not Detected
--- NOTE | 2022-07-19 02:15 | NUR ---
Spoke with Dr. Garcia regarding patients BP decreasing with SBP in 80-90's and MAP hovering 65. Order to increase maintenance fluids to 100ml/hr. Also spoke regarding patients TSH level, ordered increase in Levothyroxine to 0.075mcg.
--- NOTE | 2022-07-19 02:52 | NUR ---
Resident contacted regarding persistent downtrend in BP, order for 500ml bolus.
--- NOTE | 2022-07-19 03:43 | NUR ---
After first bolus patients MAP did improve, but then started downtrending again with MAP in the 50's not long after bolus was finished. Order for another 500ml bolus given and infusing.
--- NOTE | 2022-07-19 04:15 | NUR ---
Resident contacted regarding unresponsive BP to second 500ml bolus. Order to do a 3rd 500ml bolus.
[2022-07-19 04:29] LABS: BASOPHILS ABSOLUTE AUTO 0.07 K/mm3 (0.00-0.23); BASOPHILS PERCENT AUTO 1 % (0-2); EOSINOPHILS ABSOLUTE AUTO 0.64 K/mm3 (0.00-0.68); EOSINOPHILS PERCENT AUTO 7 % (0-6); Hematocrit 33.9 % (37.0-53.0); Hemoglobin 10.9 g/dL (13.5-17.5); IMMATURE GRAN ABSOLUTE AUTO 0.07 K/mm3 (0.00-0.10); IMMATURE GRAN PERCENT AUTO 1 % (0-1); LYMPHOCYTES ABSOLUTE AUTO 2.97 K/mm3 (0.84-5.20); LYMPHOCYTES PERCENT AUTO 33 % (21-46); MONOCYTES ABSOLUTE AUTO 0.86 K/mm3 (0.16-1.47); MONOCYTES PERCENT AUTO 10 % (4-13); Mean Corpuscular HGB 28.5 pg (26.0-34.0); Mean Corpuscular HGB Conc 32.2 g/dL (31.5-36.5); Mean Corpuscular Volume 89 fL (80-100); Mean Platelet Volume 9.2 fL (9.1-12.4); NEUTROPHILS ABSOLUTE AUTO 4.29 K/mm3 (1.96-9.15); NEUTROPHILS PERCENT AUTO 48 % (41-73); Platelet Count 217 K/mm3 (150-400); RDW Coefficient Variation 16.7 % (11.7-14.2); RDW Standard Deviation 54.2 fL (35.1-46.3); Red Blood Cell Count 3.82 M/mm3 (4.30-5.90)
[2022-07-19 04:46] LABS: Albumin, Blood 1.9 g/dL (3.4-5.0); Albumin/Globulin Ratio 0.7 (0.8-1.8); Bilirubin, Total 0.2 mg/dL (0.1-1.0); Bun/Creatinine Ratio 28.7 (12.0-20.0); Calcium, Blood 7.1 mg/dL (8.5-10.1); Creatinine, Blood 0.52 mg/dL (0.60-1.20); Globulin, Blood 2.9 g/dL (2.2-4.0); Potassium, Blood 3.7 mmol/L (3.5-5.5); Total Protein, Blood 4.8 g/dL (6.4-8.2)
--- NOTE | 2022-07-19 04:48 | NUR ---
Assumed care of pt at 0005 as an ER admit. A/Ox4, PLATINUM but able to answer questions. Patient is very lethargic and will fall asleep mid conversation. Patient had a temperature of 94.0 upon arrival via temp hernández. Bear hugger applied and temp slowly came up to 98.1. Patient has slurred speech, however according to son this is patients baseline since having previous stroke. Pupils 3mm sluggish b/l. Maintains above 90% on 2L NC, LS rubs on top and dim at bases. SB with BBB on tele in the 40's. Denies CP/pressure. BP trended down (please see previous RN notes). Pale, slightly mottled skin. Temp hernández in place draining to gravity clear/yellow urine. Will report to dayshift RN.
--- NOTE | 2022-07-19 05:58 | NUR ---
Contacted Dr. Mills regarding BP decreasing and MAP decreasing by a point every 10 minutes. Continue monitoring and no new orders per physician.
--- NOTE | 2022-07-19 07:30 | NUR ---
Assisted up to bedside commode to have BM; he is alert, oriented to person, place, date and time. Appropriate in conversation. STates that he is hearing voices which tell him that he is finished, and going to soon. He is concerned about the voices, and wants to talk to a cue worker today.
--- NOTE | 2022-07-19 11:02 | NUR ---
Pt insisted on sitting on bedside commode for 2 hours, frequent staff checks on him but he said he usually takes a long time to have a BM. STates he takes exlax every day. Prune juice given to him with breakfast, but he did not drink it. Did not have a BM this morning. After he got up to the commode, pink tinged urine noted in the hernández tubing. It has gradually increased, and is now lillian blood in the tubing, as well as blood dripping from his urethra, small amounts, intermittently. Stat-Lock was changed to place closer to eliminate tension.
[2022-07-19 13:04] LABS: CPK Creatine Kinase 54 U/L (39-308)
--- NOTE | 2022-07-19 16:12 | NUR ---
Pt expresses spiritual distress and concerns over hearing voices that tell him that he is dying. The voices then tell him they will kill him if he tells this show card writer that he is talking about them. I then explore patient's belief system and his his resources and coping skills. He shares about his Mormon beliefs and so we talk about the spiritual aspects of voices and then we also discuss his control and power to choose the thoughts that he holds on to and gives weight to. I provide spiritual direction, theological insights, gentle education counselor and prayer. Patient responds well and shows signs of being at peace and clear in his mind. Pt asks if I could return tomorrow. I will continue to remain available to patient.
--- NOTE | 2022-07-19 16:17 | NUR ---
Pt is lying in bed, has no complaints at time of vital signs check and administration of IV antibiotic. Chirinos catheter drainage tubing still has red urine in it. Urine output this shift is >500 cc. Pt is eating and drinking well.
[2022-07-20 03:48] LABS: Hematocrit 36.8 % (37.0-53.0); Hemoglobin 12.3 g/dL (13.5-17.5); Mean Corpuscular HGB 28.7 pg (26.0-34.0); Mean Corpuscular HGB Conc 33.4 g/dL (31.5-36.5); Mean Corpuscular Volume 86 fL (80-100); Mean Platelet Volume 9.2 fL (9.1-12.4); Platelet Count 233 K/mm3 (150-400); RDW Coefficient Variation 16.4 % (11.7-14.2); RDW Standard Deviation 51.4 fL (35.1-46.3); Red Blood Cell Count 4.29 M/mm3 (4.30-5.90)
[2022-07-20 04:23] LABS: Albumin, Blood 2.3 g/dL (3.4-5.0); Albumin/Globulin Ratio 0.6 (0.8-1.8); Bilirubin, Total 0.5 mg/dL (0.1-1.0); Calcium, Blood 8.7 mg/dL (8.5-10.1); Creatinine, Blood 0.67 mg/dL (0.60-1.20); Globulin, Blood 3.8 g/dL (2.2-4.0); Potassium, Blood 3.9 mmol/L (3.5-5.5); Total Protein, Blood 6.1 g/dL (6.4-8.2)
--- NOTE | 2022-07-20 05:02 | NUR ---
SHIFT SUMMARY PT A&0X4, MOVES IND IN BED, HAS A JARRETT DRAINING CRANBERRY COLORED URINE, AND HAS BEEN ASLEEP MOST OF THE SHIFT. PT WAS C/O LEFT LEG PAIN AND WHEN PAIN MEDS WERE OBTAINED HE DENIED THEM AND WANTED TO SLEEP. PT HAS BEEN SB 40'S-60'S ON TELE AND HIS BP HAS BEEN SOFT. PT DENIES ANGINA, SOB, N/V/D. HIS BED ALARM IS ON, BED IS IN LOW, AND CALL LIGHT IN REACH. WILL CONTINUE TO MONITOR UNTIL SHIFT REPORT IS GIVEN TO THE ONCOMING SHIFT RN. SEE NOTES FOR ANY UPDATES.
--- NOTE | 2022-07-20 08:56 | NUR ---
Pt is calm, not anxious and no longer talking about hearing disturbing messages from voices as he was yesterday. This was resolved after he spoke with chaplain Bren. Pt was assisted OOB to chair for breakfast, and now he is back in bed, napping. He said that he was extremely tired after having breakfast and could not stay awake any longer. Urine still noted pink tinged. Balloon was deflated, and catheter advanced 2 cm to ensure correct placement, then re-inflated. Pt denies discomfort. Active drainage noted in collection tubing; however, also noted some red-tinged urine leaking around the urethra.
--- NOTE | 2022-07-20 11:43 | NUR ---
Bladder irrigation done , twice, with total 120 cc sterile normal saline. Pt tolerated it without discomfort. No urethral leaking noted.
--- NOTE | 2022-07-20 11:50 | NUR ---
Pt working with physical therapist Steve at this time.
--- NOTE | 2022-07-20 13:40 | NUR ---
JARRETT CLAMPED FOR BLADDER TRAINING.
--- NOTE | 2022-07-20 15:49 | NUR ---
1400 Bladder irrigation with 120 cc total (60 cc x 2) sterile normal saline. Initial return blood tinged water, then red transparent urine return. Pt has no discomfort.
--- NOTE | 2022-07-20 16:37 | NUR ---
SPiritual care visit conducted. Pt is lying in bed and alert. Patient tells me about his family and then talks at length about the of his son, Kalia many years ago and becomes very tearful. He talks about his careers and his current life at [facility]. He asks about having someone from any religious come and visit him. He shares about his personal struggles. I provided therapeutic listening, grief support spiritual guidance and prayer. Pt responded well and shows signs of being comforted. I will continue to follow up with religious for possible spiritual care at his facility.
--- NOTE | 2022-07-20 17:00 | NUR ---
Urine showing less blood, clear with blood tinge now. Taran was miguelina'd. Report was called to Cynthia Nurse at [facility]. Pt's son was also contacted and he will pickle processor the antibiotic prescription at [facility] in [place] before he comes to get the patient in about an hour. Pt was assisted to get dressed and put his dentures in. He is sitting in the chair, waiting for dinner to be served.
--- NOTE | 2022-07-20 18:39 | NUR ---
1814 Pt's son Corey arrived, and discharge instructions were reviewed with the patient and his son. Corey states that he picked up the antibiotic from [facility] and dropped it off at [place]. Discharge papers were given to the patient. He had his watch, his necklaces, bracelets, dentures and clothing in his possession when he left. Taken out by FINISHING PAN OPERATOR in wheelchair to private vehicle with son Corey accompanying.
== END 2022-07-20 18:19 | disposition home or self-care (01) ==
LOC: ER 20:01 → PCU 20:02
PROVIDERS: Internal Medicine; Student in an Organized Health Care Education/Training Program; ADMIT Internal Medicine
DX: G93.40 Encephalopathy, unspecified (principal); E11.9 Type 2 diabetes mellitus without complications; J18.9 Pneumonia, unspecified organism; R31.9 Hematuria, unspecified; J44.0 Chronic obstructive pulmonary disease with (acute) lower respiratory infection; F25.9 Schizoaffective disorder, unspecified; Z99.81 Dependence on supplemental oxygen; I10 Essential (primary) hypertension; Z86.73 Personal history of transient ischemic attack (TIA), and cerebral infarction without residual deficits; I25.10 Atherosclerotic heart disease of native coronary artery without angina pectoris; Z79.82 Long term (current) use of aspirin; Z88.5 Allergy status to narcotic agent; Z88.8 Allergy status to other drugs, medicaments and biological substances; E86.0 Dehydration; Z20.822 Contact with and (suspected) exposure to COVID-19
CPT/HCPCS: 0241U; 36415; 51702; 70450; 71045; 80053; 81001; 82550; 82803; 82947; 83735; 83880; 84145; 84439; 84443; 84484; 85025; 85027; 85610; 85730; 93005; 93010; 94640; 94664; 94760; 94762; 96361; 96372; 96374; 96375; 96376; 97110; 97162; 97165; 97530; 97535; 99291-25; A9270; G0378; J0456; J0696; J1650; J7030; J7040; J7050

== ENCOUNTER 2022-07-25 11:42 | Emergency (ER) | payer OTHER ==
[~2022-07-25] VITALS: Ht 167.6 cm; Wt 68.0 kg
[~2022-07-25 11:42] MED LIST changes: +BISA10S; +CLIN1TS; +CLOP75 PO; +DULCOLAX400 MG/5 M PO; +ECONAZOLE NITRA30 GM TP; +FLUT.05NI; +HYDCOR2.5C PR; +IPRAT-ALBUT 0.5-3 ML NEB; +KETO15TC TOP; +LATA.005SO BOTHEYES; +MONT10T; +NARCAN4 M1; +OXYC10TA19 PO; +Robaxin750 MG PO; +SENNA LAXATIVE8.6 MG PO; +Serevent Disku50 MCG IH
[2022-07-25 15:15] LABS: Source, Urine Straight Cath
[2022-07-25 15:40] LABS: BASOPHILS ABSOLUTE AUTO 0.05 K/mm3 (0.00-0.23); BASOPHILS PERCENT AUTO 1 % (0-2); EOSINOPHILS ABSOLUTE AUTO 0.03 K/mm3 (0.00-0.68); EOSINOPHILS PERCENT AUTO 0 % (0-6); Hematocrit 43.4 % (37.0-53.0); Hemoglobin 14.3 g/dL (13.5-17.5); IMMATURE GRAN ABSOLUTE AUTO 0.04 K/mm3 (0.00-0.10); IMMATURE GRAN PERCENT AUTO 0 % (0-1); LYMPHOCYTES ABSOLUTE AUTO 2.79 K/mm3 (0.84-5.20); LYMPHOCYTES PERCENT AUTO 28 % (21-46); MONOCYTES ABSOLUTE AUTO 0.72 K/mm3 (0.16-1.47); MONOCYTES PERCENT AUTO 7 % (4-13); Mean Corpuscular HGB 28.4 pg (26.0-34.0); Mean Corpuscular HGB Conc 32.9 g/dL (31.5-36.5); Mean Corpuscular Volume 86 fL (80-100); Mean Platelet Volume 9.4 fL (9.1-12.4); NEUTROPHILS ABSOLUTE AUTO 6.47 K/mm3 (1.96-9.15); NEUTROPHILS PERCENT AUTO 64 % (41-73); Platelet Count 296 K/mm3 (150-400); RDW Coefficient Variation 16.7 % (11.7-14.2); RDW Standard Deviation 51.8 fL (35.1-46.3); Red Blood Cell Count 5.03 M/mm3 (4.30-5.90)
[2022-07-25 15:46] LABS: Bun/Creatinine Ratio 28.5 (12.0-20.0); Calcium, Blood 9.3 mg/dL (8.5-10.1); Creatinine, Blood 0.81 mg/dL (0.60-1.20); Potassium, Blood 3.5 mmol/L (3.5-5.5)
[2022-07-25 15:50] LABS: Appearance, Urine Hazy (Clear); Bilirubin, Urine Neg (Neg); Blood, Urine 2+ (Neg); Color, Urine Yellow (P-Yellow); Glucose Qualitative, Urine Neg (Neg); Ketones, Urine 3+ (Neg); Leukocyte Esterase, Urine Neg (Neg); Nitrite, Urine Neg (Neg); Protein, Urine 2+ (Neg); Urobilinogen, Urine NORM (Normal)
[2022-07-25 16:37] LABS: Mucus Light (0-Heavy)
[2022-07-25 16:38] LABS: Squamous Epithelial Cells Rare /hpf (Few); White Blood Cells, Urine 0-2 /hpf (0-5)
[2022-07-25 16:39] LABS: Amorphous Light (0-Heavy); Bacteria Mod /hpf; Calcium Oxalate Crystals Many /hpf
== END 2022-07-25 18:30 | disposition home or self-care (01) ==
LOC: ER 11:42
PROVIDERS: Student in an Organized Health Care Education/Training Program
DX: R44.0 Auditory hallucinations (principal); F41.9 Anxiety disorder, unspecified; R41.82 Altered mental status, unspecified; J44.9 Chronic obstructive pulmonary disease, unspecified; I10 Essential (primary) hypertension; I25.10 Atherosclerotic heart disease of native coronary artery without angina pectoris; E11.9 Type 2 diabetes mellitus without complications; E03.9 Hypothyroidism, unspecified; N40.0 Benign prostatic hyperplasia without lower urinary tract symptoms; F17.210 Nicotine dependence, cigarettes, uncomplicated; Z88.5 Allergy status to narcotic agent; Z88.8 Allergy status to other drugs, medicaments and biological substances; Z79.82 Long term (current) use of aspirin; Z79.899 Other long term (current) drug therapy; Z79.890 Hormone replacement therapy; Z86.73 Personal history of transient ischemic attack (TIA), and cerebral infarction without residual deficits
CPT/HCPCS: 36415; 51701; 71045; 80048; 81001; 85025; 87086; A9270

== ENCOUNTER 2022-09-11 17:12 | Emergency (ER) | payer OTHER ==
[~2022-09-11] VITALS: Ht 165.1 cm; Wt 52.6 kg
[2022-09-11 18:23] LABS: BASOPHILS ABSOLUTE AUTO 0.07 K/mm3 (0.00-0.23); BASOPHILS PERCENT AUTO 1 % (0-2); EOSINOPHILS ABSOLUTE AUTO 0.16 K/mm3 (0.00-0.68); EOSINOPHILS PERCENT AUTO 2 % (0-6); Hematocrit 40.9 % (37.0-53.0); Hemoglobin 13.5 g/dL (13.5-17.5); IMMATURE GRAN ABSOLUTE AUTO 0.05 K/mm3 (0.00-0.10); IMMATURE GRAN PERCENT AUTO 1 % (0-1); LYMPHOCYTES ABSOLUTE AUTO 3.23 K/mm3 (0.84-5.20); LYMPHOCYTES PERCENT AUTO 33 % (21-46); MONOCYTES ABSOLUTE AUTO 0.81 K/mm3 (0.16-1.47); MONOCYTES PERCENT AUTO 8 % (4-13); Mean Corpuscular HGB 29.3 pg (26.0-34.0); Mean Corpuscular Volume 89 fL (80-100); Mean Platelet Volume 9.6 fL (9.1-12.4); NEUTROPHILS ABSOLUTE AUTO 5.35 K/mm3 (1.96-9.15); NEUTROPHILS PERCENT AUTO 55 % (41-73); Platelet Count 242 K/mm3 (150-400); RDW Standard Deviation 53.6 fL (35.1-46.3); Red Blood Cell Count 4.61 M/mm3 (4.30-5.90); White Blood Cell Count 9.67 K/mm3 (4.00-11.30)
[2022-09-11 18:48] LABS: Magnesium, Blood 2.3 mg/dL (1.6-2.4)
[2022-09-11 18:50] LABS: Source, Urine Clean Catch
[2022-09-11 18:52] LABS: Albumin, Blood 2.9 g/dL (3.4-5.0); Albumin/Globulin Ratio 0.8 (0.8-1.8); Bilirubin, Total 0.3 mg/dL (0.1-1.0); Bun/Creatinine Ratio 39.6 (12.0-20.0); Calcium, Blood 9.1 mg/dL (8.5-10.1); Creatinine, Blood 0.48 mg/dL (0.60-1.20); Globulin, Blood 3.6 g/dL (2.2-4.0); Potassium, Blood 4.1 mmol/L (3.5-5.5); Thyroid Stimulating Hormone 0.223 uIU/mL (0.360-4.800); Total Protein, Blood 6.5 g/dL (6.4-8.2)
[2022-09-11 18:57] LABS: Appearance, Urine Clear (Clear); Bilirubin, Urine Neg (Neg); Blood, Urine Neg (Neg); Color, Urine Yellow (P-Yellow); Glucose Qualitative, Urine 1+ (Neg); Ketones, Urine Neg (Neg); Leukocyte Esterase, Urine Neg (Neg); Nitrite, Urine Neg (Neg); Protein, Urine 1+ (Neg); Urobilinogen, Urine NORM (Normal)
[2022-09-11 19:09] LABS: Influenza A, PCR NEGATIVE (NEGATIVE); Influenza B, PCR NEGATIVE (NEGATIVE); Resp Syncytial Virus, PCR NEGATIVE (NEGATIVE); SARS-Cov-2 (COVID-19) PCR, MMC NEGATIVE (NEGATIVE)
== END 2022-09-11 21:53 | disposition home or self-care (01) ==
LOC: ER 17:12
PROVIDERS: Student in an Organized Health Care Education/Training Program
DX: R53.1 Weakness (principal); R53.83 Other fatigue; J44.9 Chronic obstructive pulmonary disease, unspecified; E11.9 Type 2 diabetes mellitus without complications; I25.10 Atherosclerotic heart disease of native coronary artery without angina pectoris; E03.9 Hypothyroidism, unspecified; E78.5 Hyperlipidemia, unspecified; N40.0 Benign prostatic hyperplasia without lower urinary tract symptoms; F17.210 Nicotine dependence, cigarettes, uncomplicated; Z88.5 Allergy status to narcotic agent; Z88.8 Allergy status to other drugs, medicaments and biological substances; Z79.899 Other long term (current) drug therapy; Z79.890 Hormone replacement therapy; Z79.82 Long term (current) use of aspirin; Z86.73 Personal history of transient ischemic attack (TIA), and cerebral infarction without residual deficits
CPT/HCPCS: 0241U; 36415; 71045; 80053; 83735; 84439; 84443; 84484; 85025; 93005; 93010; 99285-25

== ENCOUNTER 2022-09-16 09:36 | Emergency (ER) | payer OTHER ==
[~2022-09-16] VITALS: Ht 162.6 cm; Wt 52.6 kg
[2022-09-16 10:14] LABS: BASOPHILS ABSOLUTE AUTO 0.07 K/mm3 (0.00-0.23); BASOPHILS PERCENT AUTO 1 % (0-2); EOSINOPHILS ABSOLUTE AUTO 0.07 K/mm3 (0.00-0.68); EOSINOPHILS PERCENT AUTO 1 % (0-6); Hemoglobin 15.1 g/dL (13.5-17.5); IMMATURE GRAN ABSOLUTE AUTO 0.04 K/mm3 (0.00-0.10); IMMATURE GRAN PERCENT AUTO 0 % (0-1); LYMPHOCYTES ABSOLUTE AUTO 2.08 K/mm3 (0.84-5.20); LYMPHOCYTES PERCENT AUTO 23 % (21-46); MONOCYTES ABSOLUTE AUTO 0.55 K/mm3 (0.16-1.47); MONOCYTES PERCENT AUTO 6 % (4-13); Mean Corpuscular HGB 29.5 pg (26.0-34.0); Mean Corpuscular HGB Conc 32.8 g/dL (31.5-36.5); Mean Corpuscular Volume 90 fL (80-100); Mean Platelet Volume 9.6 fL (9.1-12.4); NEUTROPHILS ABSOLUTE AUTO 6.12 K/mm3 (1.96-9.15); NEUTROPHILS PERCENT AUTO 69 % (41-73); Platelet Count 264 K/mm3 (150-400); RDW Coefficient Variation 17.2 % (11.7-14.2); RDW Standard Deviation 56.4 fL (35.1-46.3); Red Blood Cell Count 5.12 M/mm3 (4.30-5.90); White Blood Cell Count 8.93 K/mm3 (4.00-11.30)
[2022-09-16] MEDS ORDERED: CEFP200 PO (10:29)
[2022-09-16 10:32] LABS: Albumin, Blood 3.1 g/dL (3.4-5.0); Albumin/Globulin Ratio 0.7 (0.8-1.8); Bilirubin, Total 0.4 mg/dL (0.1-1.0); Bun/Creatinine Ratio 30.5 (12.0-20.0); Calcium, Blood 9.5 mg/dL (8.5-10.1); Creatinine, Blood 0.62 mg/dL (0.60-1.20); Globulin, Blood 4.2 g/dL (2.2-4.0); Potassium, Blood 4.5 mmol/L (3.5-5.5); Total Protein, Blood 7.3 g/dL (6.4-8.2)
[2022-09-17] MEDS ORDERED: CEFP200 PO (12:28)
== END 2022-09-16 10:49 | disposition home or self-care (01) ==
LOC: ER 09:36
PROVIDERS: Physician Assistant
DX: J18.9 Pneumonia, unspecified organism (principal); I10 Essential (primary) hypertension; J44.9 Chronic obstructive pulmonary disease, unspecified; F17.210 Nicotine dependence, cigarettes, uncomplicated; Z88.5 Allergy status to narcotic agent; Z88.8 Allergy status to other drugs, medicaments and biological substances; Z79.899 Other long term (current) drug therapy; Z79.82 Long term (current) use of aspirin
CPT/HCPCS: 71045; 80053; 85025; 93005; 93010; A9270

== ENCOUNTER 2022-09-17 12:04 | Emergency (ER) | payer OTHER ==
[~2022-09-17] VITALS: Ht 162.6 cm; Wt 49.9 kg
[2022-09-17] MEDS ORDERED: CEFP200 PO (12:28)
== END 2022-09-17 13:12 | disposition home or self-care (01) ==
LOC: ER 12:04
DX: J18.9 Pneumonia, unspecified organism (principal); J44.9 Chronic obstructive pulmonary disease, unspecified; I10 Essential (primary) hypertension; E11.9 Type 2 diabetes mellitus without complications; E03.9 Hypothyroidism, unspecified; E78.5 Hyperlipidemia, unspecified; N40.0 Benign prostatic hyperplasia without lower urinary tract symptoms; F17.210 Nicotine dependence, cigarettes, uncomplicated; Z88.5 Allergy status to narcotic agent; Z88.8 Allergy status to other drugs, medicaments and biological substances; Z79.899 Other long term (current) drug therapy; Z79.82 Long term (current) use of aspirin; Z79.890 Hormone replacement therapy; Z86.73 Personal history of transient ischemic attack (TIA), and cerebral infarction without residual deficits
CPT/HCPCS: A9270

== ENCOUNTER 2022-10-14 15:23 | Emergency (ER) | payer OTHER ==
[~2022-10-14] VITALS: Ht 165.1 cm; Wt 59.0 kg
[2022-10-14 16:13] LABS: BASOPHILS ABSOLUTE AUTO 0.07 K/mm3 (0.00-0.23); BASOPHILS PERCENT AUTO 1 % (0-2); EOSINOPHILS ABSOLUTE AUTO 0.07 K/mm3 (0.00-0.68); EOSINOPHILS PERCENT AUTO 1 % (0-6); Hematocrit 42.2 % (37.0-53.0); Hemoglobin 13.9 g/dL (13.5-17.5); IMMATURE GRAN ABSOLUTE AUTO 0.07 K/mm3 (0.00-0.10); IMMATURE GRAN PERCENT AUTO 1 % (0-1); LYMPHOCYTES ABSOLUTE AUTO 2.64 K/mm3 (0.84-5.20); LYMPHOCYTES PERCENT AUTO 26 % (21-46); MONOCYTES ABSOLUTE AUTO 0.71 K/mm3 (0.16-1.47); MONOCYTES PERCENT AUTO 7 % (4-13); Mean Corpuscular HGB 30.8 pg (26.0-34.0); Mean Corpuscular HGB Conc 32.9 g/dL (31.5-36.5); Mean Corpuscular Volume 94 fL (80-100); Mean Platelet Volume 9.4 fL (9.1-12.4); NEUTROPHILS ABSOLUTE AUTO 6.59 K/mm3 (1.96-9.15); NEUTROPHILS PERCENT AUTO 65 % (41-73); Platelet Count 279 K/mm3 (150-400); RDW Coefficient Variation 17.2 % (11.7-14.2); RDW Standard Deviation 59.2 fL (35.1-46.3); Red Blood Cell Count 4.51 M/mm3 (4.30-5.90); White Blood Cell Count 10.15 K/mm3 (4.00-11.30)
[2022-10-14 16:34] LABS: Albumin, Blood 3.3 g/dL (3.4-5.0); Albumin/Globulin Ratio 0.9 (0.8-1.8); Bilirubin, Total 0.2 mg/dL (0.1-1.0); Bun/Creatinine Ratio 36.5 (12.0-20.0); Creatinine, Blood 0.68 mg/dL (0.60-1.20); Globulin, Blood 3.5 g/dL (2.2-4.0); Potassium, Blood 4.4 mmol/L (3.5-5.5); Total Protein, Blood 6.8 g/dL (6.4-8.2)
[2022-10-15 01:10] LABS: Source, Urine Voided
[2022-10-15 01:13] LABS: Appearance, Urine Clear (Clear); Bilirubin, Urine Neg (Neg); Blood, Urine 3+ (Neg); Color, Urine Yellow (P-Yellow); Glucose Qualitative, Urine 2+ (Neg); Ketones, Urine Neg (Neg); Leukocyte Esterase, Urine Neg (Neg); Nitrite, Urine Neg (Neg); Protein, Urine 1+ (Neg); Specific Gravity, Urine 1.025 (1.003-1.022); Urobilinogen, Urine NORM (Normal)
[2022-10-15 01:36] LABS: White Blood Cells, Urine Not Seen /hpf (0-5)
[2022-10-15 01:37] LABS: Amorphous Light (0-Heavy); Bacteria Rare /hpf; Red Blood Cells, Urine 25-50 /hpf (0-2); Squamous Epithelial Cells Rare /hpf (Few)
== END 2022-10-15 01:58 | disposition home or self-care (01) ==
LOC: ER 15:23
PROVIDERS: Emergency Medicine
DX: R10.30 Lower abdominal pain, unspecified (principal); Z88.5 Allergy status to narcotic agent; Z88.8 Allergy status to other drugs, medicaments and biological substances; J44.9 Chronic obstructive pulmonary disease, unspecified; I10 Essential (primary) hypertension; I25.10 Atherosclerotic heart disease of native coronary artery without angina pectoris; E11.9 Type 2 diabetes mellitus without complications; E03.9 Hypothyroidism, unspecified; E78.5 Hyperlipidemia, unspecified; F17.210 Nicotine dependence, cigarettes, uncomplicated; Z79.899 Other long term (current) drug therapy; Z79.82 Long term (current) use of aspirin; Z99.81 Dependence on supplemental oxygen
CPT/HCPCS: 36415; 51701; 51798; 74177; 80053; 81001; 82947; 85025; 99285-25; Q9967

== ENCOUNTER 2022-10-26 20:15 | Emergency (ER) | payer OTHER ==
[~2022-10-26] VITALS: Ht 175.3 cm; Wt 72.6 kg
[2022-10-26 20:29] LABS: BASOPHILS ABSOLUTE AUTO 0.06 K/mm3 (0.00-0.23); BASOPHILS PERCENT AUTO 0 % (0-2); EOSINOPHILS ABSOLUTE AUTO 0.05 K/mm3 (0.00-0.68); EOSINOPHILS PERCENT AUTO 0 % (0-6); Hematocrit 41.6 % (37.0-53.0); Hemoglobin 14.2 g/dL (13.5-17.5); IMMATURE GRAN ABSOLUTE AUTO 0.11 K/mm3 (0.00-0.10); IMMATURE GRAN PERCENT AUTO 1 % (0-1); LYMPHOCYTES ABSOLUTE AUTO 2.07 K/mm3 (0.84-5.20); LYMPHOCYTES PERCENT AUTO 13 % (21-46); MONOCYTES ABSOLUTE AUTO 1.53 K/mm3 (0.16-1.47); MONOCYTES PERCENT AUTO 9 % (4-13); Mean Corpuscular HGB 31.2 pg (26.0-34.0); Mean Corpuscular HGB Conc 34.1 g/dL (31.5-36.5); Mean Corpuscular Volume 91 fL (80-100); Mean Platelet Volume 9.4 fL (9.1-12.4); NEUTROPHILS ABSOLUTE AUTO 12.52 K/mm3 (1.96-9.15); NEUTROPHILS PERCENT AUTO 77 % (41-73); Platelet Count 249 K/mm3 (150-400); RDW Coefficient Variation 16.1 % (11.7-14.2); RDW Standard Deviation 54.4 fL (35.1-46.3); Red Blood Cell Count 4.55 M/mm3 (4.30-5.90); White Blood Cell Count 16.34 K/mm3 (4.00-11.30)
[2022-10-26 20:52] LABS: Albumin/Globulin Ratio 0.8 (0.8-1.8); Bilirubin, Total 0.4 mg/dL (0.1-1.0); Bun/Creatinine Ratio 30.1 (12.0-20.0); Calcium, Blood 9.7 mg/dL (8.5-10.1); Creatinine, Blood 0.7 mg/dL (0.60-1.20); Globulin, Blood 3.9 g/dL (2.2-4.0); Total Protein, Blood 6.9 g/dL (6.4-8.2)
[2022-10-26 21:00] VITALS: BP 122/66
[2022-10-26 22:32] LABS: Source, Urine Clean Catch
[2022-10-26 22:38] LABS: Bilirubin, Urine Neg (Neg); Blood, Urine 5+ (Neg); Glucose Qualitative, Urine Neg (Neg); Ketones, Urine Neg (Neg); Leukocyte Esterase, Urine Neg (Neg); Nitrite, Urine Pos (Neg); Protein, Urine 2+ (Neg); Urobilinogen, Urine 1+ (Normal); pH, Urine 6.5 (5.0-8.0)
[2022-10-26 22:46] LABS: Appearance, Urine Cloudy (Clear); Color, Urine Yellow (P-Yellow)
[2022-10-26 22:48] LABS: Bacteria Many /hpf; Red Blood Cells, Urine 50-100 /hpf (0-2); Squamous Epithelial Cells Not Seen /hpf (Few)
[2022-10-26] MEDS ORDERED: CEPH500 PO (23:08)
== END 2022-10-26 23:36 | disposition home or self-care (01) ==
LOC: ER 20:15
PROVIDERS: Student in an Organized Health Care Education/Training Program
DX: R51.9 Headache, unspecified (principal); D72.829 Elevated white blood cell count, unspecified; W18.30XA Fall on same level, unspecified, initial encounter; Z88.5 Allergy status to narcotic agent; Z88.8 Allergy status to other drugs, medicaments and biological substances; Z79.899 Other long term (current) drug therapy; Z79.82 Long term (current) use of aspirin; J44.9 Chronic obstructive pulmonary disease, unspecified; I10 Essential (primary) hypertension; E11.9 Type 2 diabetes mellitus without complications; E03.9 Hypothyroidism, unspecified; E78.5 Hyperlipidemia, unspecified; F17.210 Nicotine dependence, cigarettes, uncomplicated
CPT/HCPCS: 70450; 72125; 80053; 81001; 85025; 87077; 87086; 87186; 93005; 93010; 96374; 99284-25; J0696

== ENCOUNTER 2022-11-14 13:54 | Day surgery (SDC) | payer OTHER ==
[~2022-11-14] VITALS: Ht 160 cm; Wt 54.1 kg
[~2022-11-14 13:54] MED LIST changes: +CEPH500 PO
[2022-11-14] MEDS ORDERED: TIMDOROPSO (14:12)
[2022-11-14] MEDS ORDERED: LORA10ER (14:13)
[2022-11-14] MEDS ORDERED: SERT25 (14:14)
[2022-11-14] MEDS ORDERED: NARCAN4 M1 (14:15)
[2022-11-14] MEDS ORDERED: NITR.4SL (14:15)
[2022-11-14] MEDS ORDERED: OXYC10ER (14:16)
--- NOTE | 2022-11-14 14:26 | NUR ---
11/14/22 1426 Valerie Chirinos TETRACAINE TO LEFT EYE AT 1410 PLEDGET TO LEFT EYE AT 1412 BY [facility].RICARDO
[2022-11-14 15:51] VITALS: BP 110/65
--- NOTE | 2022-11-14 16:10 | NUR ---
11/14/22 1610 Nancy Mesa DISCHARGE INSTRUCTIONS EXPLAINED TO PATIENT AND SON IN ROOM, VERBALIZED UNDERSTANDING.
== END 2022-11-14 16:08 | disposition home or self-care (01) ==
LOC: ORSCSDS 13:54
PROVIDERS: Ophthalmology
PROC: 08933ZZ Drainage of Left Anterior Chamber, Percutaneous Approach (ICD-10-PCS; principal; 2022-11-14 15:00)
PROC: 08RK3JZ Replacement of Left Lens with Synthetic Substitute, Percutaneous Approach (ICD-10-PCS; principal; 2022-11-14 15:00)
DX: H25.13 Age-related nuclear cataract, bilateral (principal); H40.1123 Primary open-angle glaucoma, left eye, severe stage; H40.1112 Primary open-angle glaucoma, right eye, moderate stage; I10 Essential (primary) hypertension; J44.9 Chronic obstructive pulmonary disease, unspecified; F17.210 Nicotine dependence, cigarettes, uncomplicated; Z86.73 Personal history of transient ischemic attack (TIA), and cerebral infarction without residual deficits; F31.9 Bipolar disorder, unspecified; F41.9 Anxiety disorder, unspecified; N40.0 Benign prostatic hyperplasia without lower urinary tract symptoms; Z79.02 Long term (current) use of antithrombotics/antiplatelets; Z99.81 Dependence on supplemental oxygen; Z79.899 Other long term (current) drug therapy; Z79.01 Long term (current) use of anticoagulants; Z79.82 Long term (current) use of aspirin
CPT/HCPCS: 82947; J2001; J2250; J3010; J3301; J7040; V2632

== ENCOUNTER 2022-11-15 18:50 | Emergency (ER) | payer OTHER ==
[~2022-11-15] VITALS: Ht 182.9 cm; Wt 90.7 kg
[~2022-11-15 18:50] MED LIST changes: +LORA10ER; +NITR.4SL; +OXYC10ER; +SERT25; +TIMDOROPSO
[2022-11-15 19:30] LABS: Mean Corpuscular HGB 30.9 pg (26.0-34.0); RDW Coefficient Variation 14.8 % (11.7-14.2)
[2022-11-15 19:42] LABS: Albumin/Globulin Ratio 0.7 (0.8-1.8); Bilirubin, Total 0.3 mg/dL (0.1-1.0); Calcium, Blood 9.3 mg/dL (8.5-10.1); Creatinine, Blood 0.55 mg/dL (0.60-1.20); Globulin, Blood 4.1 g/dL (2.2-4.0); Potassium, Blood 4.7 mmol/L (3.5-5.5); Total Protein, Blood 7.1 g/dL (6.4-8.2)
[2022-11-15 19:44] LABS: BASOPHILS ABSOLUTE AUTO 0.09 K/mm3 (0.00-0.23); BASOPHILS PERCENT AUTO 1 % (0-2); EOSINOPHILS ABSOLUTE AUTO 0.25 K/mm3 (0.00-0.68); EOSINOPHILS PERCENT AUTO 2 % (0-6); Hematocrit 42.5 % (37.0-53.0); Hemoglobin 14.3 g/dL (13.5-17.5); IMMATURE GRAN ABSOLUTE AUTO 0.14 K/mm3 (0.00-0.10); IMMATURE GRAN PERCENT AUTO 1 % (0-1); LYMPHOCYTES ABSOLUTE AUTO 2.78 K/mm3 (0.84-5.20); LYMPHOCYTES PERCENT AUTO 26 % (21-46); MONOCYTES ABSOLUTE AUTO 0.82 K/mm3 (0.16-1.47); MONOCYTES PERCENT AUTO 8 % (4-13); Mean Corpuscular HGB Conc 33.6 g/dL (31.5-36.5); Mean Corpuscular Volume 92 fL (80-100); Mean Platelet Volume 9.6 fL (9.1-12.4); NEUTROPHILS ABSOLUTE AUTO 6.74 K/mm3 (1.96-9.15); NEUTROPHILS PERCENT AUTO 62 % (41-73); NRBC ABSOLUTE 0.02 K/mm3 (0.00-0.02); NRBC Auto 0.2 /100 WBC (0.0-0.2); Platelet Count 278 K/mm3 (150-400); RDW Standard Deviation 49.7 fL (35.1-46.3); Red Blood Cell Count 4.63 M/mm3 (4.30-5.90); White Blood Cell Count 10.82 K/mm3 (4.00-11.30)
[2022-11-15 20:24] VITALS: BP 138/60
== END 2022-11-15 20:43 | disposition home or self-care (01) ==
LOC: ER 18:50
PROVIDERS: Emergency Medicine
DX: R41.82 Altered mental status, unspecified (principal); Z88.5 Allergy status to narcotic agent; Z88.8 Allergy status to other drugs, medicaments and biological substances; Z79.899 Other long term (current) drug therapy; Z79.82 Long term (current) use of aspirin; F17.210 Nicotine dependence, cigarettes, uncomplicated; J44.9 Chronic obstructive pulmonary disease, unspecified; I10 Essential (primary) hypertension; I25.10 Atherosclerotic heart disease of native coronary artery without angina pectoris; E11.9 Type 2 diabetes mellitus without complications; E03.9 Hypothyroidism, unspecified; E78.5 Hyperlipidemia, unspecified
CPT/HCPCS: 70450; 71045; 80053; 82947; 85025; 93005; 93010

== ENCOUNTER 2023-03-24 22:20 | Emergency (ER) | payer OTHER ==
[~2023-03-24] VITALS: Ht 165.1 cm; Wt 53.5 kg
[~2023-03-24 22:20] MED LIST changes: +Pepcid20 MG PO
[2023-03-25 00:32] LABS: BASOPHILS ABSOLUTE AUTO 0.11 K/mm3 (0.00-0.23); BASOPHILS PERCENT AUTO 1 % (0-2); EOSINOPHILS ABSOLUTE AUTO 0.28 K/mm3 (0.00-0.68); EOSINOPHILS PERCENT AUTO 3 % (0-6); Hematocrit 47.1 % (37.0-53.0); Hemoglobin 15.9 g/dL (13.5-17.5); IMMATURE GRAN ABSOLUTE AUTO 0.09 K/mm3 (0.00-0.10); IMMATURE GRAN PERCENT AUTO 1 % (0-1); LYMPHOCYTES ABSOLUTE AUTO 3.29 K/mm3 (0.84-5.20); LYMPHOCYTES PERCENT AUTO 33 % (21-46); MONOCYTES ABSOLUTE AUTO 0.84 K/mm3 (0.16-1.47); MONOCYTES PERCENT AUTO 8 % (4-13); Mean Corpuscular HGB 30.8 pg (26.0-34.0); Mean Corpuscular HGB Conc 33.8 g/dL (31.5-36.5); Mean Corpuscular Volume 91 fL (80-100); NEUTROPHILS ABSOLUTE AUTO 5.38 K/mm3 (1.96-9.15); NEUTROPHILS PERCENT AUTO 54 % (41-73); Platelet Count 264 K/mm3 (150-400); RDW Coefficient Variation 14.5 % (11.7-14.2); RDW Standard Deviation 48.4 fL (35.1-46.3); Red Blood Cell Count 5.16 M/mm3 (4.30-5.90); White Blood Cell Count 9.99 K/mm3 (4.00-11.30)
[2023-03-25 00:51] LABS: Ethanol (Alcohol), Blood, Med <3 mg/dL; Magnesium, Blood 2.1 mg/dL (1.6-2.4); Salicylate 3.8 mg/dL (2.8-20.0)
[2023-03-25 01:01] LABS: Alanine Aminotransfer (ALT/SGP 20 U/L (12-78); Albumin, Blood 3.1 g/dL (3.4-5.0); Albumin/Globulin Ratio 0.8 (0.8-1.8); Alk Phos 93 U/L (50-136); Anion Gap 5 mmol/L (6-16); Aspartate Aminotrans (AST/SGOT 7 U/L (12-37); Bilirubin, Total 0.2 mg/dL (0.1-1.0); Blood Urea Nitrogen 16 mg/dL (8-24); Bun/Creatinine Ratio 21.1 (12.0-20.0); CO2, Blood 29 mmol/L (21-32); Calcium, Blood 9.3 mg/dL (8.5-10.1); Chloride, Blood 104 mmol/L (98-108); Creatinine, Blood 0.76 mg/dL (0.60-1.20); Globulin, Blood 3.8 g/dL (2.2-4.0); Glomerular Filtration Rate 92 (60-); Glucose, Blood 198 mg/dL (70-99); Potassium, Blood 4.2 mmol/L (3.5-5.5); Sodium, Blood 138 mmol/L (136-145); Total Protein, Blood 6.9 g/dL (6.4-8.2)
[2023-03-25 01:02] LABS: Acetaminophen, Random <2.0 ug/mL (10.0-30.0)
[2023-03-25 03:00] VITALS: BP 128/72
== END 2023-03-25 03:27 | disposition home or self-care (01) ==
LOC: ER 22:20
PROVIDERS: Emergency Medicine
DX: F41.9 Anxiety disorder, unspecified (principal); Z88.8 Allergy status to other drugs, medicaments and biological substances; Z88.5 Allergy status to narcotic agent; Z79.899 Other long term (current) drug therapy; Z79.82 Long term (current) use of aspirin; J44.9 Chronic obstructive pulmonary disease, unspecified; I10 Essential (primary) hypertension; I25.10 Atherosclerotic heart disease of native coronary artery without angina pectoris; E11.9 Type 2 diabetes mellitus without complications; E03.9 Hypothyroidism, unspecified; E78.5 Hyperlipidemia, unspecified; F17.210 Nicotine dependence, cigarettes, uncomplicated
CPT/HCPCS: 80053; 82140; 83735; 84100; 84443; 84484; 85025; 93005; 93010; 99285-25; A9270; G0480

== ENCOUNTER 2023-03-30 12:20 | Emergency (ER) | payer OTHER ==
[~2023-03-30] VITALS: Ht 162.6 cm; Wt 51.3 kg
[2023-03-30 12:54] LABS: BASOPHILS ABSOLUTE AUTO 0.11 K/mm3 (0.00-0.23); BASOPHILS PERCENT AUTO 1 % (0-2); EOSINOPHILS PERCENT AUTO 3 % (0-6); Hematocrit 46.5 % (37.0-53.0); Hemoglobin 15.9 g/dL (13.5-17.5); IMMATURE GRAN ABSOLUTE AUTO 0.08 K/mm3 (0.00-0.10); IMMATURE GRAN PERCENT AUTO 1 % (0-1); LYMPHOCYTES ABSOLUTE AUTO 2.89 K/mm3 (0.84-5.20); LYMPHOCYTES PERCENT AUTO 30 % (21-46); MONOCYTES ABSOLUTE AUTO 0.88 K/mm3 (0.16-1.47); MONOCYTES PERCENT AUTO 9 % (4-13); Mean Corpuscular HGB 30.6 pg (26.0-34.0); Mean Corpuscular HGB Conc 34.2 g/dL (31.5-36.5); Mean Corpuscular Volume 89 fL (80-100); Mean Platelet Volume 8.9 fL (9.1-12.4); NEUTROPHILS ABSOLUTE AUTO 5.52 K/mm3 (1.96-9.15); NEUTROPHILS PERCENT AUTO 56 % (41-73); Platelet Count 283 K/mm3 (150-400); RDW Coefficient Variation 14.2 % (11.7-14.2); RDW Standard Deviation 46.5 fL (35.1-46.3); White Blood Cell Count 9.78 K/mm3 (4.00-11.30)
[2023-03-30 13:12] LABS: Albumin, Blood 3.2 g/dL (3.4-5.0); Albumin/Globulin Ratio 0.7 (0.8-1.8); Bilirubin, Total 0.5 mg/dL (0.1-1.0); Bun/Creatinine Ratio 22.2 (12.0-20.0); Calcium, Blood 9.5 mg/dL (8.5-10.1); Creatinine, Blood 0.72 mg/dL (0.60-1.20); Globulin, Blood 4.3 g/dL (2.2-4.0); Potassium, Blood 5.3 mmol/L (3.5-5.5); Total Protein, Blood 7.5 g/dL (6.4-8.2)
[2023-03-30 14:26] VITALS: BP 125/67
[2023-03-30] MEDS ORDERED: DONEPEZIL HCL5 M2 PO (14:47)
== END 2023-03-30 16:45 | disposition home or self-care (01) ==
LOC: ER 12:20
PROVIDERS: Physician Assistant
DX: R07.89 Other chest pain (principal); Z88.5 Allergy status to narcotic agent; Z88.8 Allergy status to other drugs, medicaments and biological substances; Z79.899 Other long term (current) drug therapy; Z79.82 Long term (current) use of aspirin; J44.9 Chronic obstructive pulmonary disease, unspecified; I10 Essential (primary) hypertension; I25.10 Atherosclerotic heart disease of native coronary artery without angina pectoris; E11.9 Type 2 diabetes mellitus without complications; E78.5 Hyperlipidemia, unspecified; F17.210 Nicotine dependence, cigarettes, uncomplicated
CPT/HCPCS: 71046; 80053; 83880; 84484; 85025; 93005; 93010; 99284-25

== ENCOUNTER 2023-05-11 18:42 | Emergency (ER) | payer OTHER ==
[~2023-05-11] VITALS: Ht 157.5 cm; Wt 53.5 kg
[~2023-05-11 18:42] MED LIST changes: +DONEPEZIL HCL5 M2 PO
[2023-05-11 20:26] LABS: BASOPHILS ABSOLUTE AUTO 0.09 K/mm3 (0.00-0.23); BASOPHILS PERCENT AUTO 1 % (0-2); EOSINOPHILS ABSOLUTE AUTO 0.11 K/mm3 (0.00-0.68); EOSINOPHILS PERCENT AUTO 1 % (0-6); Hematocrit 49.8 % (37.0-53.0); Hemoglobin 16.4 g/dL (13.5-17.5); IMMATURE GRAN ABSOLUTE AUTO 0.04 K/mm3 (0.00-0.10); IMMATURE GRAN PERCENT AUTO 0 % (0-1); LYMPHOCYTES PERCENT AUTO 31 % (21-46); MONOCYTES ABSOLUTE AUTO 0.83 K/mm3 (0.16-1.47); MONOCYTES PERCENT AUTO 9 % (4-13); Mean Corpuscular HGB 30.7 pg (26.0-34.0); Mean Corpuscular HGB Conc 32.9 g/dL (31.5-36.5); Mean Corpuscular Volume 93 fL (80-100); Mean Platelet Volume 9.3 fL (9.1-12.4); NEUTROPHILS ABSOLUTE AUTO 5.58 K/mm3 (1.96-9.15); NEUTROPHILS PERCENT AUTO 58 % (41-73); Platelet Count 237 K/mm3 (150-400); RDW Coefficient Variation 14.7 % (11.7-14.2); RDW Standard Deviation 50.9 fL (35.1-46.3); Red Blood Cell Count 5.34 M/mm3 (4.30-5.90); White Blood Cell Count 9.65 K/mm3 (4.00-11.30)
[2023-05-11 20:48] LABS: Albumin, Blood 3.3 g/dL (3.4-5.0); Albumin/Globulin Ratio 0.8 (0.8-1.8); Bilirubin, Total 0.6 mg/dL (0.1-1.0); Calcium, Blood 9.4 mg/dL (8.5-10.1); Creatinine, Blood 0.72 mg/dL (0.60-1.20); Globulin, Blood 4.1 g/dL (2.2-4.0); Potassium, Blood 4.3 mmol/L (3.5-5.5); Total Protein, Blood 7.4 g/dL (6.4-8.2)
[2023-05-11 21:00] VITALS: BP 115/62
== END 2023-05-11 22:22 | disposition home or self-care (01) ==
LOC: ER 18:42
PROVIDERS: Emergency Medicine
DX: R07.9 Chest pain, unspecified (principal); H53.9 Unspecified visual disturbance; I10 Essential (primary) hypertension; J44.9 Chronic obstructive pulmonary disease, unspecified; I25.10 Atherosclerotic heart disease of native coronary artery without angina pectoris; E11.9 Type 2 diabetes mellitus without complications; E03.9 Hypothyroidism, unspecified; E78.5 Hyperlipidemia, unspecified; F17.210 Nicotine dependence, cigarettes, uncomplicated; Z85.828 Personal history of other malignant neoplasm of skin; Z88.5 Allergy status to narcotic agent; Z88.8 Allergy status to other drugs, medicaments and biological substances; Z86.73 Personal history of transient ischemic attack (TIA), and cerebral infarction without residual deficits; Z79.82 Long term (current) use of aspirin; Z79.02 Long term (current) use of antithrombotics/antiplatelets; Z79.899 Other long term (current) drug therapy
CPT/HCPCS: 71045; 80053; 83880; 84484; 85025; 99284-25

== ENCOUNTER 2023-09-10 09:22 | Emergency (ER) | payer OTHER ==
[~2023-09-10] VITALS: Ht 165.1 cm; Wt 61.2 kg
[2023-09-10 09:26] VITALS: BP 127/72
== END 2023-09-10 10:26 | disposition home or self-care (01) ==
LOC: ER 09:22
DX: M25.551 Pain in right hip (principal); J44.9 Chronic obstructive pulmonary disease, unspecified; Z99.81 Dependence on supplemental oxygen; I10 Essential (primary) hypertension; F41.9 Anxiety disorder, unspecified; I25.10 Atherosclerotic heart disease of native coronary artery without angina pectoris; E11.9 Type 2 diabetes mellitus without complications; E03.9 Hypothyroidism, unspecified; G89.4 Chronic pain syndrome; F31.9 Bipolar disorder, unspecified; H40.9 Unspecified glaucoma; E78.5 Hyperlipidemia, unspecified; N40.0 Benign prostatic hyperplasia without lower urinary tract symptoms; F17.210 Nicotine dependence, cigarettes, uncomplicated; Z88.5 Allergy status to narcotic agent; Z88.8 Allergy status to other drugs, medicaments and biological substances; Z79.82 Long term (current) use of aspirin; Z79.899 Other long term (current) drug therapy; Z79.890 Hormone replacement therapy; Z79.02 Long term (current) use of antithrombotics/antiplatelets; Z79.51 Long term (current) use of inhaled steroids; Z91.81 History of falling
CPT/HCPCS: 99284-25

== ENCOUNTER 2024-03-08 13:12 | Observation (INO) | payer OTHER ==
[~2024-03-08] VITALS: Ht 165.1 cm; Wt 53.5 kg
[2024-03-08] MEDS ORDERED: LEVSOD75 PO (13:31)
[2024-03-08] MEDS ORDERED: LORA10ER PO (13:32)
[2024-03-08] MEDS ORDERED: ZOCOR20 MG PO (13:32)
[2024-03-08] MEDS ORDERED: ARNUITY ELLIPT50 MCG IH (13:32)
[2024-03-08] MEDS ORDERED: ASPI81CH PO (13:32)
[2024-03-08] MEDS ORDERED: DONE5 PO (13:33)
[2024-03-08 14:52] LABS: BASOPHILS ABSOLUTE AUTO 0.07 K/mm3 (0.00-0.23); BASOPHILS PERCENT AUTO 0 % (0-2); EOSINOPHILS ABSOLUTE AUTO 0.07 K/mm3 (0.00-0.68); EOSINOPHILS PERCENT AUTO 0 % (0-6); Hematocrit 47.9 % (37.0-53.0); Hemoglobin 15.9 g/dL (13.5-17.5); IMMATURE GRAN ABSOLUTE AUTO 0.08 K/mm3 (0.00-0.10); IMMATURE GRAN PERCENT AUTO 1 % (0-1); LYMPHOCYTES PERCENT AUTO 12 % (21-46); MONOCYTES ABSOLUTE AUTO 0.94 K/mm3 (0.16-1.47); MONOCYTES PERCENT AUTO 6 % (4-13); Mean Corpuscular HGB 30.6 pg (26.0-34.0); Mean Corpuscular HGB Conc 33.2 g/dL (31.5-36.5); Mean Corpuscular Volume 92 fL (80-100); Mean Platelet Volume 9.6 fL (9.1-12.4); NEUTROPHILS PERCENT AUTO 81 % (41-73); Platelet Count 279 K/mm3 (150-400); RDW Standard Deviation 47.2 fL (35.1-46.3); Red Blood Cell Count 5.19 M/mm3 (4.30-5.90); White Blood Cell Count 16.06 K/mm3 (4.00-11.30)
[2024-03-08 15:06] LABS: Albumin, Blood 3.3 g/dL (3.4-5.0); Albumin/Globulin Ratio 0.7 (0.8-1.8); Bilirubin, Total 0.6 mg/dL (0.1-1.0); Bun/Creatinine Ratio 19.3 (12.0-20.0); Calcium, Blood 9.3 mg/dL (8.5-10.1); Creatinine, Blood 0.67 mg/dL (0.60-1.20); Globulin, Blood 4.5 g/dL (2.2-4.0); Potassium, Blood 3.9 mmol/L (3.5-5.5); Total Protein, Blood 7.8 g/dL (6.4-8.2)
[2024-03-08] MEDS ORDERED: CefTRIAXone Sodium 2,000 MG in NS 100 ML IV ONE (17:00)
[2024-03-08 17:27] LABS: Source, Urine Clean Catch
[2024-03-08 17:32] LABS: Appearance, Urine Hazy (Clear); Bilirubin, Urine Neg (Neg); Blood, Urine Neg (Neg); Color, Urine Yellow (P-Yellow); Glucose Qualitative, Urine 1+ (Neg); Ketones, Urine Neg (Neg); Leukocyte Esterase, Urine 3+ (Neg); Nitrite, Urine Neg (Neg); Protein, Urine 1+ (Neg); Specific Gravity, Urine 1.015 (1.003-1.022); Urobilinogen, Urine NORM (Normal)
[2024-03-08 17:42] LABS: Red Blood Cells, Urine 0-2 /hpf (0-2); Squamous Epithelial Cells Few /hpf (Few); White Blood Cells, Urine TNTC /hpf (0-5)
[2024-03-08 17:43] LABS: Bacteria Many /hpf; Mucus Light (0-Heavy)
[2024-03-08] MEDS ORDERED: Ondansetron HCl 2 MG / ML 2ML Vial IV PRN (17:50)
[2024-03-08] MEDS ORDERED: Acetaminophen 325 MG TABLET PO PRN (17:50)
[2024-03-08 18:00] LABS: Albumin, Blood 3.2 g/dL (3.4-5.0); Albumin/Globulin Ratio 0.7 (0.8-1.8); Bilirubin, Direct 0.2 mg/dL (0.0-0.3); Bilirubin, Indirect 0.5 mg/dL (0.1-0.7); Bilirubin, Total 0.7 mg/dL (0.1-1.0); Globulin, Blood 4.7 g/dL (2.2-4.0); Magnesium, Blood 2.1 mg/dL (1.6-2.4); Phosphorus, Blood 3.2 mg/dL (2.5-4.9); Total Protein, Blood 7.9 g/dL (6.4-8.2)
[2024-03-08] MEDS ORDERED: CeFAZolin Sodium 1,000 MG in NS 50 ML IV SCH (18:30)
[2024-03-08] MEDS ORDERED: CeFAZolin Sodium 1000 mg Vial ONE (18:55)
[2024-03-08] MEDS ORDERED: NS 50 ML IV ONE (18:55)
[2024-03-08 19:05] LABS: International Normalized Ratio 1.02; Prothrombin Time Results 10.9 Sec (9.7-11.5)
[2024-03-08] MEDS ORDERED: Atropine Sulfate 0.1 MG/ML 10ML SYR IV PRN (19:40)
[2024-03-08 20:11] VITALS: BP 138/69
[2024-03-08] MEDS ORDERED: Vancomycin HCL 1,250 MG in NS 250 ML IV ONE (20:35)
[2024-03-08] MEDS ORDERED: CefTRIAXone Sodium 1,000 MG in NS 100 ML IV SCH (21:00)
[2024-03-08] MEDS ORDERED: Insulin Human Lispro 100 Units/ML 3ML Syringe SC SCH (21:00)
[2024-03-08] MEDS ORDERED: Lactobacil 2-S.Thermo-Bifido 1 1 Cap PO SCH (21:00)
--- NOTE | 2024-03-08 21:13 | NUR ---
WENT TO GET PATIENT'S BLOOD SUGAR, PATIENT SAID "FU NO". NOTIFIED NURSE.
[2024-03-08] MEDS ORDERED: CefTRIAXone 1000 MG Vial ONE (22:38)
[2024-03-08] MEDS ORDERED: NS 100 ML IV ONE (22:39)
--- NOTE | 2024-03-08 23:04 | NUR ---
PT TRANSFERRED FROM ED A&O4 BUT UNCOOPERATIVE IN ANSWERING QUESTIONS. PT ANGRY AND WANTS TO BE LEFT ALONE TO SLEEP. PT REFUSING LAB DRAW REPEATLY AND STATES HE IS TIRED OF GETTING POKED. WAS NOT ABLE TO COMPLETE ADMISSION DUE TO NONCOMPLIANCE. BY THE THIRD REQUEST FOR BLOOD DRAW PT STATED HE WANTS TO LEAVE AMA AND WAS EDUCATED ON THE RISKS VS BENEFITS OF LEAVING THE HOSPITAL BY CHARGE NURSE. PT AGREES AND WANTS TO LEAVE AND WALK HOME. CHARGE NURSE CONTACTED LIVING FACILITY BUT NO ANSWER. THIS NURSE CALLED SON AND ASKED IF HE WOULD PICK PT UP DUE TO SAFETY CONCERNS AND WHILE TRANSFERRING CALL TO PT ROOM; CALL WAS DISCONNECTED AND ATTEMPTED TO CALL SON SEVERAL TIMES WITH NO ANSWER. PT PULLED OFF TELE LEADS AND HOSPITAL GOWN AND STATED HE WANTED HIS CLOTHES TO LEAVE. CHARGE NURSE SPOKE TO BPM ARCHITECT AND MD ABOUT PT LEAVING AMA.
--- NOTE | 2024-03-08 23:57 | NUR ---
UPDATE PRIMARY RN NOTIFIED THIS RN THAT PATIENT WAS UNCOOPERATIVE AND REFUSING CARE/LAB DRAWS. THIS RN ENTERED ROOM TO DISCUSS OPTIONS WITH PATIENT. PATIENT STATING "I ALREADY SAID NO, I DON'T WANT TO DO THAT, I'LL JUST FUCKING LEAVE". THIS RN CALLED HOSPITALIST DR. POWELL WITH UPDATE. HOSPITALIST STATED THAT THIS CONVERSATION WAS ALSO HAD IN THE ER PRIOR TO ADMISSION. RISKS AND BENEFITS EXPLAINED TO PATIENT, PATIENT ABLE TO SIGN AMA FORM AND AMBULATE OUT OF ROOM INDEPENDENTLY. MULTIPLE CALLS TO PATIENTS SON PRIOR TO PATIENT LEAVING ROOM. SON ANSWERED ONE TIME BUT WAS UNREACHABLE AFTER STAFF AND SON WERE DISCONNECTED. THIS RN ATTEMPTED TO CONTACT [facility] WHICH INCLUDED CALLING NONEMERGENCY NUMBER TO ASSIST WITH FINDING A CONTACT FOR PATIENT OTHER THAN SON. PATIENT AMBULATING DOWN TO ER LOBBY AT 2340. PATIENT THEN WALKED OUT IN FRONT OF HOSPITAL. SECURITY FOLLOWING. THAT WAS OUTSIDE OF BUILDING CONTACTED BY SECURITY. STATED HE WOULD MAKE SOME PHONE CALLS IN ORDER TO ASSIST PATIENT BACK TO [facility].
[2024-03-09] MEDS ORDERED: Enoxaparin 40 MG/0.4 ML SYR SC SCH (09:00)
[2024-03-09] MEDS ORDERED: Vancomycin HCL 1,000 MG in NS 250 ML IV SCH (09:00)
== END 2024-03-08 23:40 | disposition left against medical advice (07) ==
LOC: ER 13:12 → MEDS 13:13 → PCU 19:59
PROVIDERS: Student in an Organized Health Care Education/Training Program; ADMIT Student in an Organized Health Care Education/Training Program
DX: N49.2 Inflammatory disorders of scrotum (principal); I25.10 Atherosclerotic heart disease of native coronary artery without angina pectoris; F31.9 Bipolar disorder, unspecified; R65.20 Severe sepsis without septic shock; E78.5 Hyperlipidemia, unspecified; J44.9 Chronic obstructive pulmonary disease, unspecified; I10 Essential (primary) hypertension; E11.9 Type 2 diabetes mellitus without complications; E03.9 Hypothyroidism, unspecified; Z88.5 Allergy status to narcotic agent; Z88.8 Allergy status to other drugs, medicaments and biological substances; Z74.09 Other reduced mobility; Z79.899 Other long term (current) drug therapy
CPT/HCPCS: 74177; 80053; 80076; 81001; 83605; 83735; 84100; 85025; 85610; 85730; 87086; 93005; 93010; 96365; 99284-25; A9270; G0378; J0690; J0696; J3370; J7050; Q9967

== ENCOUNTER 2024-03-19 13:10 | Emergency (ER) | payer OTHER ==
[~2024-03-19] VITALS: Ht 167.6 cm; Wt 72.6 kg
[~2024-03-19 13:10] MED LIST changes: +ARNUITY ELLIPT50 MCG IH; +ASPI81CH PO; +DONE5 PO; +LEVSOD75 PO; +LORA10ER PO; +ZOCOR20 MG PO
[2024-03-19 13:48] VITALS: BP 171/85
== END 2024-03-19 13:52 | disposition home or self-care (01) ==
LOC: ER 13:10
DX: Z00.8 Encounter for other general examination (principal); J44.9 Chronic obstructive pulmonary disease, unspecified; I10 Essential (primary) hypertension; E11.9 Type 2 diabetes mellitus without complications; E03.9 Hypothyroidism, unspecified; E78.5 Hyperlipidemia, unspecified; F17.210 Nicotine dependence, cigarettes, uncomplicated; Z86.73 Personal history of transient ischemic attack (TIA), and cerebral infarction without residual deficits; Z79.51 Long term (current) use of inhaled steroids; Z79.82 Long term (current) use of aspirin; Z79.899 Other long term (current) drug therapy; Z88.5 Allergy status to narcotic agent; Z88.8 Allergy status to other drugs, medicaments and biological substances
CPT/HCPCS: 99281

== ENCOUNTER 2024-10-11 00:55 | Emergency (ER) | payer OTHER ==
[~2024-10-11] VITALS: Ht 165.1 cm; Wt 59.0 kg
[2024-10-11 01:01] VITALS: BP 144/66
== END 2024-10-11 01:44 | disposition home or self-care (01) ==
LOC: ER 00:55
DX: R07.2 Precordial pain (principal); E11.9 Type 2 diabetes mellitus without complications; E78.5 Hyperlipidemia, unspecified; E03.9 Hypothyroidism, unspecified; J44.9 Chronic obstructive pulmonary disease, unspecified; I10 Essential (primary) hypertension; F17.210 Nicotine dependence, cigarettes, uncomplicated; W05.1XXA Fall from non-moving nonmotorized scooter, initial encounter; Z86.73 Personal history of transient ischemic attack (TIA), and cerebral infarction without residual deficits; Z79.51 Long term (current) use of inhaled steroids; Z79.82 Long term (current) use of aspirin; Z79.899 Other long term (current) drug therapy; Z88.5 Allergy status to narcotic agent; Z88.8 Allergy status to other drugs, medicaments and biological substances
CPT/HCPCS: 93005; 93010; 99285-25

== ENCOUNTER 2025-02-16 22:57 | Inpatient (IN) | payer OTHER ==
[~2025-02-16] VITALS: Ht 157.5 cm; Wt 55.4 kg
[2025-02-16] MEDS ORDERED: FentaNYL Citrate 50 MCG/ML 2 ML Injection IV PRN (23:05)
[2025-02-16] MEDS ORDERED: NS 1,000 ML IV SCH (23:05)
[2025-02-16 23:59] LABS: BASOPHILS ABSOLUTE AUTO 0.07 K/mm3 (0.00-0.23); BASOPHILS PERCENT AUTO 1 % (0-2); EOSINOPHILS ABSOLUTE AUTO 0.28 K/mm3 (0.00-0.68); EOSINOPHILS PERCENT AUTO 2 % (0-6); Hematocrit 40.5 % (37.0-53.0); Hemoglobin 13.1 g/dL (13.5-17.5); IMMATURE GRAN ABSOLUTE AUTO 0.10 K/mm3 (0.00-0.10); IMMATURE GRAN PERCENT AUTO 1 % (0-1); LYMPHOCYTES ABSOLUTE AUTO 1.44 K/mm3 (0.84-5.20); LYMPHOCYTES PERCENT AUTO 9 % (21-46); MONOCYTES ABSOLUTE AUTO 1.12 K/mm3 (0.16-1.47); MONOCYTES PERCENT AUTO 7 % (4-13); Mean Corpuscular HGB Conc 32.3 g/dL (31.5-36.5); Mean Corpuscular Volume 92 fL (80-100); NEUTROPHILS ABSOLUTE AUTO 12.39 K/mm3 (1.96-9.15); NEUTROPHILS PERCENT AUTO 80 % (41-73); NRBC ABSOLUTE 0.00 K/mm3 (0.00-0.02); NRBC Auto 0.0 /100 WBC (0.0-0.2); Platelet Count 183 K/mm3 (150-400); RDW Coefficient Variation 15.1 % (11.7-14.2); RDW Standard Deviation 51.3 fL (35.1-46.3)
[2025-02-17] VITALS (31 sets, daily range): BP systolic 90–172; BP diastolic 43–95
[2025-02-17 00:19] LABS: Alanine Aminotransfer (ALT/SGP 15.0 U/L (12-78); Albumin, Blood 2.6 g/dL (3.4-5.0); Albumin/Globulin Ratio 0.7 (0.8-1.8); Anion Gap 8.0 mmol/L (3-11); Aspartate Aminotrans (AST/SGOT 15.0 U/L (12-37); Bilirubin, Total 0.5 mg/dL (0.1-1.0); Blood Urea Nitrogen 12.0 mg/dL (8-24); CO2, Blood 27.0 mmol/L (21-32); Calcium, Blood 8.7 mg/dL (8.5-10.1); Chloride, Blood 107.0 mmol/L (98-108); Creatinine, Blood 0.57 mg/dL (0.60-1.20); Globulin, Blood 3.5 g/dL (2.2-4.0); Glucose, Blood 144.0 mg/dL (70-99); Potassium, Blood 4.7 mmol/L (3.5-5.5); Sodium, Blood 137.0 mmol/L (136-145); Total Protein, Blood 6.1 g/dL (6.4-8.2)
[2025-02-17] MEDS ORDERED: Ondansetron HCl 2 MG / ML 2ML Vial IV PRN (03:15)
[2025-02-17] MEDS ORDERED: NS 500 ML IV ONE (03:19)
[2025-02-17] MEDS ORDERED: Ketorolac Tromethamine 15mg Vial IV PRN (03:30)
[2025-02-17 03:38] LABS: Thyroid Stimulating Hormone 0.126 uIU/mL (0.360-4.800)
--- NOTE | 2025-02-17 05:18 | NUR ---
ARRIVAL SUMMARY PT ARRIVED TO UNIT VIA GURNEY AROUND 0400. A/OX3, UNSURE OF DATE. ABLE TO MAKE NEEDS KNOWN. HR 40-50'S, BP STABLE W/ MAPS >65. ON ROOM AIR, SATS > 96%. ATTENDS IN PLACE. OLERATING PO INTAKE. PT HAS R HIP FX BUT IS DECLINING SURGICAL INTERVENTION. REPORTING ZERO PAIN. HIS MED REQ IS INCOMPLETE D/T NOT KNOWING HIS HOME MEDS, LIVES AT [facility] AND HAS A HELPER THERE THAT FILLS HIS MED CASE FOR THE WEEK. WILL REPORT TO ONCOMING RN FOR F/U ON MED LIST TODAY. CALL LIGHT IN REACH.
[2025-02-17 06:26] LABS: BASOPHILS ABSOLUTE AUTO 0.06 K/mm3 (0.00-0.23); BASOPHILS PERCENT AUTO 1 % (0-2); EOSINOPHILS ABSOLUTE AUTO 0.19 K/mm3 (0.00-0.68); EOSINOPHILS PERCENT AUTO 2 % (0-6); Hematocrit 39.4 % (37.0-53.0); Hemoglobin 12.7 g/dL (13.5-17.5); IMMATURE GRAN ABSOLUTE AUTO 0.04 K/mm3 (0.00-0.10); IMMATURE GRAN PERCENT AUTO 0 % (0-1); LYMPHOCYTES ABSOLUTE AUTO 1.60 K/mm3 (0.84-5.20); LYMPHOCYTES PERCENT AUTO 13 % (21-46); MONOCYTES ABSOLUTE AUTO 1.00 K/mm3 (0.16-1.47); MONOCYTES PERCENT AUTO 8 % (4-13); Mean Corpuscular HGB Conc 32.2 g/dL (31.5-36.5); Mean Corpuscular Volume 94 fL (80-100); NEUTROPHILS ABSOLUTE AUTO 9.09 K/mm3 (1.96-9.15); NEUTROPHILS PERCENT AUTO 76 % (41-73); NRBC ABSOLUTE 0.00 K/mm3 (0.00-0.02); NRBC Auto 0.0 /100 WBC (0.0-0.2); Platelet Count 179 K/mm3 (150-400); RDW Coefficient Variation 15.3 % (11.7-14.2); RDW Standard Deviation 53.1 fL (35.1-46.3)
[2025-02-17 06:47] LABS: Alanine Aminotransfer (ALT/SGP 14.0 U/L (12-78); Albumin, Blood 2.3 g/dL (3.4-5.0); Albumin/Globulin Ratio 0.7 (0.8-1.8); Anion Gap 6.0 mmol/L (3-11); Aspartate Aminotrans (AST/SGOT 18.0 U/L (12-37); Bilirubin, Total 0.5 mg/dL (0.1-1.0); Blood Urea Nitrogen 12.0 mg/dL (8-24); CO2, Blood 29.0 mmol/L (21-32); Calcium, Blood 8.4 mg/dL (8.5-10.1); Chloride, Blood 110.0 mmol/L (98-108); Creatinine, Blood 0.57 mg/dL (0.60-1.20); Globulin, Blood 3.2 g/dL (2.2-4.0); Glucose, Blood 156.0 mg/dL (70-99); Magnesium, Blood 1.9 mg/dL (1.6-2.4); Potassium, Blood 5.2 mmol/L (3.5-5.5); Sodium, Blood 140.0 mmol/L (136-145); Total Protein, Blood 5.5 g/dL (6.4-8.2)
--- NOTE | 2025-02-17 11:22 | NUR ---
PALLIATIVE CARE VISIT: CONSULT REQUESTED TO DISCUSS TREATMENT PLAN WITH PT. MET WITH PT IN HIS ROOM. PT IS ABLE TO MAKE INFORMED DECISIONS. DISCUSSED WITH HIM IF HE WANTS TO HAVE SURGERY FOR HIS HIP FRACTURE. PT STATES "PROBABLY, IT DEPENDS ON WHAT THE SURGEON TELLS ME." CALLED DR. HENSLEY AND ORDER RECIEVED AND PLACED FOR ORTHO CONSULT. UPDATED PRIMARY RN.
--- NOTE | 2025-02-17 11:33 | NUR ---
ASSUMED CARE AT 0700 PT LAYING IN BED LISTENING TO MUSIC ON HIS HEADPHONES AT SHIFT CHANGE. HE IS A/O X3, UNKNOWN DATE, BUT ORIENTED TO SELF, SITUATION, AND PLACE. HE STATES THAT HE DOES NOT WANT SURGERY BUT ALSO DOESN'T WANT TO BE BED BOUND D/T HIP FRACTURE, HE ALSO STATES THAT HE WILL "CRAWL OUT OF HERE" IF NEED BE. SPO2 >92% ON RA. HR 50-60'S. SBP 100'S WITH MAP >65. TOLERATING PO INTAKE WELL. INCONTINENT OF URINE. PT C/O PAIN TO RT HIP; PRN TORADOL GIVEN AND PT STATES "MILDLY" HELPFUL. SEE SHIFT ASSESSMENT FOR FULL ASSESSMENT. DISCUSSION WITH PT, DR HENSLEY, TWO RN, AND PHONE CALL TO PT SON REGARDING SURGERY. PT SON JAZZMINE ABLE TO REASON WITH PT MAKING IT MORE WILLING TO GO TO SURGERY. PT STATES THAT THERE IS A LOT OF FEAR REGARDING SURGERY AND PAST SURGERIES HERE AT [facility]. PT WANTS TO TALK TO THE SURGEN BEFORE MAKING A FINAL CHOICE.
--- NOTE | 2025-02-17 14:20 | NUR ---
TRANSFER/ARRIVAL TO UNIT PT ARRIVED TO UNIT VIA BED FROM ICU. PT SLID TO BED VIA SLIDE SHEET. A&O x3. PT AGUA CALIENTE; PT HAS CONSISTENT USE OF HEADPHONES & NEEDS DIRECTION TO REMOVE THEM TO COMMUNICATE c STAFF. PT BLIND IN L EYE. R HIP EXTERNALLY ROTATED, NO BRUISING VISUALIZED. SKIN TEAR ON LUE, DRESSING IN PLACE c MIN SEROSANG DRAINAGE. ATTENDS IN PLACE. ORIENTED TO UNIT, CALL LIGHT IN REACH, NO NEEDS STATED.
[2025-02-18] VITALS (19 sets, daily range): BP systolic 112–148; BP diastolic 56–104
--- NOTE | 2025-02-18 02:18 | NUR ---
NEW ORDER DR. POWELL NOTIFIED OF PT'S KORY COLORED URINE AND NPO STATUS. NEW ORDER FOR LR AT 100ML/HR X 2 BAGS OBTAINED. WILL IMPLEMENT DIRECTED.
--- NOTE | 2025-02-18 05:02 | NUR ---
SHIFT SUMMARY NO ACUTE CHANGES T/O ASSET SPECIALIST. PT ABLE TO MAKE NEEDS KNOWN. PAIN MANAGED PER EMAR AND REPOSITIONING. IVF INFUSING PER ORDERS. PUREWICK IN PLACE. NPO SINCE MIDNIGHT. IS A/OX3 WITH VSS. REF SCDS. PT CURRENTLY RESTING IN BED WITH CALL LIGHT IN REACH AND BED ALARM ON FOR SAFETY. PLAN FOR POTENTIAL SURGERY TODAY R/T RIGHT HIP FX. WILL GIVE REPORT TO ONCOMING RN.
[2025-02-18] MEDS ORDERED: Tranexamic Acid 100 ML IV SCH (12:15)
[2025-02-18] MEDS ORDERED: CeFAZolin Sodium 2,000 MG in NS 100 ML IV SCH ×2 (12:15→21:30)
--- NOTE | 2025-02-18 12:21 | NUR ---
PT TO OR AT THIS TIME
--- NOTE | 2025-02-18 12:52 | NUR ---
FLUSHED 22G IV RIGHT HAND/PATENT.
[2025-02-18] MEDS ORDERED: Bupivacaine 0.5% HCl 5 MG/ML 30MLVIAL ONE (13:03)
[2025-02-18] MEDS ORDERED: FentaNYL Citrate 50 MCG/ML 2 ML Injection ONE ×2 (13:09→14:39)
[2025-02-18] MEDS ORDERED: Ondansetron HCl 2 MG / ML 2ML Vial IV PRN (13:15)
[2025-02-18] MEDS ORDERED: Labetalol HCL 5 MG/ML 4ML Injection (Single Dose) IV PRN (13:20)
[2025-02-18] MEDS ORDERED: FentaNYL Citrate 50 MCG/ML 2 ML Injection IV PRN ×3 (13:20)
[2025-02-18] MEDS ORDERED: Metoclopramide HCl 5MG / ML 2ML Vial IV PRN (13:20)
[2025-02-18] MEDS ORDERED: HYDROmorphone HCl/Pf 1MG SYR IV PRN (13:20)
[2025-02-18] MEDS ORDERED: Ketorolac Tromethamine 30mg Vial ONE (13:59)
--- NOTE | 2025-02-18 15:15 | NUR ---
PATIENT IS BACK FROM OR. PER TELE SR 61. ON 3L NC, SATS 90-94%. X3 AQUACELS TO R HIP. AOX3-4. [place]. VISION IMPAIRED. DENIES PAIN. TOELRATING PO INTAKE. CALL LIGHT IN REACH.
[2025-02-18] MEDS ORDERED: HYDROcodone 5-APAP 325 TAB PO PRN (16:30)
--- NOTE | 2025-02-18 18:15 | NUR ---
SHIFT SUMMARY PATIENT IS AOX3-4, POD 0 FOR R JAN HIP. AQUACELS X3 ARE C/D/I. WORKS WITH THERAPY THIS AFTERNOON. TOLERATING PO INTAKE. DENIES PAIN AT THIS TIME. ATTENDS IN PLACE. ABLE TO MAKE NEEDS KNOWN. CALLS OUT AT TIMES. BED ALARM FOR SAFETY. VSS.
[2025-02-19 04:08] VITALS: BP 122/71
--- NOTE | 2025-02-19 05:03 | NUR ---
LAB UPDATE PT REFUSING MORNING LABS. IS ANGRY AND AGGRESSIVE, YELLING AT THE DRY CELL ASSEMBLY SUPERVISOR AND RN. RISK VS BENEFIT EDUCATION PROVIDED. PT STATES, "YOU ALREADY GOT ENOUGH [place] BLOOD AND YOU DONT NEED NO MORE... I DONT CARE WHAT THE DOCTOR WANTS... I HAVE THE RIGHT TO REFUSE... IM OLD AND NOT HEALTHY ANYWAYS." CHARGE NURSE AWARE. WILL INFORM DAY RN. PT RESTING IN BED WITH CALL LIGHT IN REACH.
--- NOTE | 2025-02-19 05:42 | NUR ---
SHIFT SUMMARY POD 1 S/P RIGHT JAN HIP REPAIR, AQUACEL CDI. REFUSED ICE THERAPY T/O NIGHT. PAIN MANAGED PER EMAR. IS A/OX3, SP02 ABOVE 94% ON 2L NC. DIDIER PO INTAKE, DENIES N/V. INCONT OF VOIDS, ATTENTS CHANGES PRN. APPEARS TO HAVE SLEPT T/O MOST OF THE NIGHT WITH RESP EVEN AND HEADPHONES ON. HAS CALL LIGHT IN REACH. PLAN TO WORK THERAPY TODAY, IF PATIENT IS WILLING. DECLINED AM LABS, SEE PREVIOUS NOTE. WILL GIVE REPORT TO ONCOMING RN.
[2025-02-19 07:33] VITALS: BP 134/64
[2025-02-19 08:16] LABS: Hematocrit 38.9 % (37.0-53.0); Hemoglobin 13.0 g/dL (13.5-17.5); Mean Corpuscular HGB Conc 33.4 g/dL (31.5-36.5); Mean Corpuscular Volume 93 fL (80-100); NRBC ABSOLUTE 0.00 K/mm3 (0.00-0.02); NRBC Auto 0.0 /100 WBC (0.0-0.2); Platelet Count 188 K/mm3 (150-400); RDW Coefficient Variation 14.9 % (11.7-14.2); RDW Standard Deviation 50.8 fL (35.1-46.3)
[2025-02-19] MEDS ORDERED: Enoxaparin 40 MG/0.4 ML SYR SC SCH (09:00)
[2025-02-19 15:52] VITALS: BP 123/63
[2025-02-19 19:09] VITALS: BP 110/56
--- NOTE | 2025-02-19 19:59 | NUR ---
SHIFT SUMMARY- PT ALERT AND ORIENTED TO SELF, HE GETS AGGITATED EASILY AND FLAILS HIS ARMS WHEN FRIGHTENED WHEN STAFF ARE ASSISTING HIM WITH A CHANGE. HE BECOMES AGGITATED AT STAFF AND APPEARS ANGRY WITH INTENT TO CAUSE HARM, BUT THEN APPOLOGIZES ONCE HE REGAINS CONTROL A MINUTE LATER. HE DOES NOT ACT AGRESSIVE IN GENERAL, JUST WHEN HE IS MOVING AND IS STARTLED OR FEARFUL OF PAIN, OR IN PAIN. PT HAD A BED BATH THIS EVENING WITH A FULL LINNEN CHANGE. HE HAD A MEDIUM PASTY STOOL THAT WAS RITCHIE IN COLOR. PT IS CURRENTLY IN BED, CALL LIGHT IN REACH NO S&S OF DISTRESS NOTED AT THIS TIME.
--- NOTE | 2025-02-19 21:00 | NUR ---
UPDATE PT REFUSING POC TESTING, YELLING AT PRIMARY EDUCATION PROFESSOR. RISK/BENEFIT EDU PROVIDED, PT REFUSING EDUCATION.
[2025-02-20 00:16] VITALS: BP 112/54
[2025-02-20 04:06] VITALS: BP 133/89
--- NOTE | 2025-02-20 05:49 | NUR ---
SHIFT SUMMARY IS POD 2 S/P LEFT JAN HIP. AQUACEL CDI, DENIES ICE THERAPY. PAIN MANAGED PER EMAR. IS INTERMITTENTLY UNCOOPERATIVE WTIH CARE. IS VOIDING AND DRINKING PO. ABLE AND WILLING TO ASSIST WITH ATTENDS AND REPOSTIONING THIS MORNING. REF HS POC TESTING. SP02 AT 95% ON 3L NC. CONT TO WORK WITH THERAPY, PT HAS DANGLED AT BEDSIDE SINCE SURGERY. BLE ELEVATED WITH PILLOWS TO FLOAT HEELS. PRESSURE PREVENTTION DRESSINGS APPLIED TO FEET. PT REPORTS RELIEF. PT IS CURRENTLY WATCHING TV IN ROOM. HAS CALL LIGHT IN REACH AND ABLE TO MKAE NEEDS KNOWN. WILL GIVE REPORT TO ONCOMING RN .
[2025-02-20 07:08] VITALS: BP 146/58
[2025-02-20 15:32] VITALS: BP 120/81
--- NOTE | 2025-02-20 16:42 | NUR ---
POD #3 RIGHT HIP PINNING. AQUACEL IS C/D/I. PATIENT IS 2 PERSON TO TURN, AND FOR TRANSFERS. REFUSES MOST CARES. HAND PAINT MIXER'S WERE ABLE TO GET PATIENT UP TO CHAIR THIS EVENING. ATTENDS CHANGED T/O SHIFT VOIDING INCONT. CALLS OUT AT TIMES. AOX3. [place]. TOLERATING PO INTAKE. HAS MEPILEX TO COCCXY AND BILAT HEELS. ABLE TO MAKE NEEDS KNOWN.
[2025-02-20 19:27] VITALS: BP 132/69
[2025-02-21 00:11] VITALS: BP 134/75
[2025-02-21 03:42] VITALS: BP 149/60
--- NOTE | 2025-02-21 07:00 | NUR ---
SHIFT SUMMARY- PT COOPERATIVE WITH CARE THIS SHIFT. PT LET ME REPOSITION HIM OF 'TAILBONE' WHICH IS WHAT IS MOST PAINFUL. MEDICATED PT WITH SCHEDULED AND PRN MEDS PER EMAR. HAD HEADPHONES ON ALL SHIFT AND WESTERNS ON TV. PT TAKES PO MEDS WHOLE WITH PEPSI. TELE IN PLACE. NO ACUTE CHANGES THIS SHIFT.
[2025-02-21 07:11] VITALS: BP 131/69
[2025-02-21] MEDS ORDERED: Docusate Sodium/Senna 1 Tab PO SCH ×2 (10:20→21:00)
[2025-02-21 14:25] VITALS: BP 125/58
--- NOTE | 2025-02-21 16:06 | NUR ---
[facility] care [facility]'s [facility].
--- NOTE | 2025-02-21 16:46 | NUR ---
SUMMARY [id number] (REPORTED TO XI AT 1600 WHO TOOK OVER CARE)- PT A/O X3, BEDREST THIS SHIFT. PT'S R HIP WITH AQUACEL DRESSING WITH MIN SHADOWING PROXIMAL WOUND. CMS INTACT. MEPILEX REPORTED IN PLACE TO GLUT FOR REDNESS AND PROTECTION. MEPILEX INTACT TO BILAT HEELS. PT TOLERATING FOOD AND FLUIDS. LAST BM DOC. 02/19. PT INCONT BLADDER USING ATTENDS. CHANGED ATTENDS AT 0700. PT REFUSED TO BE MOVED EXCEPT MOVING UP IN BED FOR LUNCH, WITH GREAT RESISTANCE RELATED TO PAIN. PT POSTURED TOWARDS RN IF TO HIT HER AFTER HE ASKED FOR HOB TO BE PUT DOWN WITH NO CONTACT. PAIN CONTROLLED WITH NORCO PRN. AGREED TO BE TURNED AND CHANGED AFTER NORCO ADMIN AT 1545. PT TO BE TRANSFERRED TO [facility] FOR THERAPY. DESHAUN KASPER RN WILL ASSIST IN GETTING PT READY FOR TRANSFER. REPORTED OFF TO XI AT 1600.
== END 2025-02-21 16:39 | DRG 482 ==
LOC: ER 22:57 → SURS 02-17 03:21 → ICUE 02-17 03:21 → SURS 02-17 11:40 → ICUE 02-17 12:49 → SURS 02-17 14:15
PROVIDERS: Emergency Medicine; Internal Medicine; ADMIT Student in an Organized Health Care Education/Training Program
PROC: 0QS636Z Reposition Right Upper Femur with Intramedullary Internal Fixation Device, Percutaneous Approach (ICD-10-PCS; principal; 2025-02-17)
PROC: 3E03329 Introduction of Other Anti-infective into Peripheral Vein, Percutaneous Approach (ICD-10-PCS; 2025-02-18)
DX: S72.141A Displaced intertrochanteric fracture of right femur, initial encounter for closed fracture (principal); J44.9 Chronic obstructive pulmonary disease, unspecified; I10 Essential (primary) hypertension; I25.10 Atherosclerotic heart disease of native coronary artery without angina pectoris; E11.9 Type 2 diabetes mellitus without complications; E03.9 Hypothyroidism, unspecified; G89.4 Chronic pain syndrome; F31.9 Bipolar disorder, unspecified; E78.5 Hyperlipidemia, unspecified; N40.0 Benign prostatic hyperplasia without lower urinary tract symptoms; F41.9 Anxiety disorder, unspecified; F17.210 Nicotine dependence, cigarettes, uncomplicated; E86.0 Dehydration; D72.829 Elevated white blood cell count, unspecified; I95.9 Hypotension, unspecified; R00.1 Bradycardia, unspecified; Z88.5 Allergy status to narcotic agent; Z88.8 Allergy status to other drugs, medicaments and biological substances; Z98.42 Cataract extraction status, left eye; Z86.73 Personal history of transient ischemic attack (TIA), and cerebral infarction without residual deficits; Z98.890 Other specified postprocedural states; Z85.828 Personal history of other malignant neoplasm of skin; Z79.890 Hormone replacement therapy; Z79.899 Other long term (current) drug therapy; Z79.82 Long term (current) use of aspirin; W01.198A Fall on same level from slipping, tripping and stumbling with subsequent striking against other object, initial encounter
CPT/HCPCS: 36415; 71045; 73502; 80053; 82533; 82947; 83735; 84439; 84443; 85025; 85027; 94762; 96361; 96374; 96375; 96376; 97110; 97161; 97166; 97530; 97535; 99285-25; A9270; C1713; C1769; G0378; J0690; J1650; J1885; J2405; J2704; J3010; J7030; J7120

== ENCOUNTER 2025-05-06 15:11 | Emergency (ER) | payer OTHER ==
[~2025-05-06] VITALS: Ht 165.1 cm; Wt 53.5 kg
[2025-05-06 16:46] VITALS: BP 104/60
== END 2025-05-06 16:47 | disposition home or self-care (01) ==
LOC: ER 15:11
DX: S00.412A Abrasion of left ear, initial encounter (principal); I10 Essential (primary) hypertension; J44.9 Chronic obstructive pulmonary disease, unspecified; X58.XXXA Exposure to other specified factors, initial encounter
CPT/HCPCS: 99283